=== PATIENT | female | born 1975 | race Caucasian/White ===

== ENCOUNTER 2019-11-21 07:22 | Outpatient (CLI) | payer OTHER, SELFPAY ==
[2019-11-21 07:58] LABS: Add Urine Microscopic? YES; Appearance Urine Cloudy (Clear); Bacteria Urine Trace /hpf; Bilirubin Urine Negative (Negative); Blood Urine 1+ (Negative); Color Urine Yellow (Yellow); Glucose Urine UA Negative (Negative); Ketones Urine Negative (Negative); Leukocyte Esterase Ur 3+ LEU/UL (NEGATIVE); Nitrate Urine Positive (Negative); Protein Urine 1+ mg/dL (Negative); RBC Urine 21-50 /hpf (0-2); Specific Grav Ur 1.017 (1.001-1.035); Squamous Epithelial Cell Urine Many /hpf (Few); Urobilinogen Urine Negative mg/dL (<2.0); WBC Urine >75 /hpf (0-3)
== END 2019-11-21 07:23 | disposition home or self-care (01) ==
PROVIDERS: PCP Internal Medicine; Visit Provider Obstetrics & Gynecology
DX: R39.9 Unspecified symptoms and signs involving the genitourinary system (principal)
CPT/HCPCS: 81001; 87077; 87086; 87088; 87186

== ENCOUNTER 2020-01-30 10:04 | Outpatient (CLI) | payer OTHER, SELFPAY ==
[2020-01-30 10:57] LABS: Hematocrit 49.6 % (37.0-47.0); Hemoglobin 16.2 g/dL (12.0-15.0); Mean Corpuscular HGB Conc 32.7 g/dl (32-36); Mean Corpuscular Hemoglobin 27.3 pg (26-34); Mean Corpuscular Volume 83.5 fl (80-100); Mean Platelet Volume 8.9 fl (7.4-10.4); Platelet Count Result 376 k/mm3 (150-375); Red Blood Count 5.94 M/mm3 (4.2-5.4); Red Cell Distribution Width 14.6 % (11.5-14.5)
[2020-01-30 11:28] LABS: Alanine Aminotransferase 22 U/L (4-35); Albumin Level 4.8 g/dL (3.5-5.1); Alkaline Phosphatase 85 U/L (38-126); Anion Gap 17.7 mmol/L (7-16); Aspartate Amino Transferase 33 U/L (14-36); Bilirubin,Total 0.4 mg/dL (0.2-1.3); Blood Urea Nitrogen 14 mg/dL (7-17); Calcium 10.2 mg/dL (8.4-10.2); Carbon Dioxide 17 mmol/L (22-30); Chloride 106 mmol/L (98-107); Estimated Glomerular Filt Rate > 60; Glucose 109 mg/dL (65-105); Potassium 4.7 mmol/L (3.4-5.0); Sodium 136 mmol/L (137-145)
[2020-01-30 12:56] LABS: Free T4 Free Thyroxine 0.92 ng/mL (0.78-2.19); Vitamin D 25 Hydroxy 47.6 ng/mL
== END 2020-01-30 10:05 | disposition home or self-care (01) ==
LOC: ANHLAB 10:06
PROVIDERS: PCP Internal Medicine; Visit Provider Obstetrics & Gynecology
DX: R42 Dizziness and giddiness (principal)
CPT/HCPCS: 36415; 80053; 82306; 84439; 84443; 85027

== ENCOUNTER 2020-09-14 07:39 | Outpatient (CLI) | payer OTHER, SELFPAY ==
[2020-09-14 08:32] LABS: Anion Gap 11 mmol/L (8-16); Blood Urea Nitrogen 14 mg/dL (7-17); Calcium 9.6 mg/dL (8.4-10.2); Carbon Dioxide 22 mmol/L (22-30); Chloride 104 mmol/L (98-107); Estimated Glomerular Filt Rate > 60; Glucose 86 mg/dL (65-105); Potassium 3.9 mmol/L (3.4-5.0); Sodium 137 mmol/L (137-145)
[2020-09-14 09:13] LABS: Vitamin D 25 Hydroxy 55.2 ng/mL
[2020-09-17 05:18] LABS: FSH 12.1 mIU/mL (***)
[2020-09-21 14:36] LABS: Estrogen 391.7 pg/mL
== END 2020-09-14 07:40 | disposition home or self-care (01) ==
PROVIDERS: PCP Internal Medicine; Visit Provider Obstetrics & Gynecology
DX: G47.00 Insomnia, unspecified (principal); M62.838 Other muscle spasm; Z51.81 Encounter for therapeutic drug level monitoring; Z79.899 Other long term (current) drug therapy
CPT/HCPCS: 36415; 80048; 82306; 82607; 82672; 83001

== ENCOUNTER 2020-10-09 10:08 | Outpatient (NON) | payer OTHER, SELFPAY ==
[2020-10-09 11:18] LABS: Add Urine Microscopic? YES; Appearance Urine Clear (Clear); Bacteria Urine Trace /hpf; Bilirubin Urine Negative (Negative); Blood Urine Negative (Negative); Color Urine Colorless (Yellow); Glucose Urine UA Negative (Negative); Ketones Urine Trace mg/dL (Negative); Leukocyte Esterase Ur 1+ LEU/UL (NEGATIVE); Nitrate Urine Negative (Negative); Protein Urine Negative (Negative); RBC Urine 0-2 /hpf (0-2); Squamous Epithelial Cell Urine Rare /hpf (Few); Urobilinogen Urine Negative mg/dL (<2.0)
[2020-10-09 11:23] LABS: Specific Grav Ur 1.002 (1.001-1.035)
== END 2020-10-09 10:09 ==
PROVIDERS: PCP Internal Medicine; Visit Provider Obstetrics & Gynecology
DX: R39.9 Unspecified symptoms and signs involving the genitourinary system (principal)
CPT/HCPCS: 81001; 87086; 87088

== ENCOUNTER 2020-10-13 13:56 | Outpatient (NON) | payer OTHER, SELFPAY | END 2020-10-13 13:57 | LOC: ANHLAB 13:58 | PROVIDERS: PCP Internal Medicine; Visit Provider Obstetrics & Gynecology | DX: R39.9 Unspecified symptoms and signs involving the genitourinary system (principal) | CPT/HCPCS: 87086 ==

== ENCOUNTER 2020-11-12 12:17 | Outpatient (CLI) | payer OTHER, SELFPAY ==
--- NOTE | ~2020-11-12 | MMUS_ITS ---
EXAMINATION: MM diagnostic hans BI w will, US breast LT limited HISTORY: Double left breast lump TECHNIQUE: Additional 3-D tomosynthesis images of the breasts were performed and synthetic 2-D images were generated. CAD analysis was submitted and interpreted. High resolution targeted left breast ult rasound was performed. COMPARISON: 10/30/2017 BREAST PARENCHYMAL COMPOSITION: The breasts are extremely dense, which lowers the sensitivity of mamm ography. FINDINGS: MAMMOGRAPHIC FINDINGS: There are no suspicious masses, calcifications or architectural distortion in either breast to sugges t malignancy. ULTRASOUND: Left breast ultrasound: At 2:00, 7 cm from the nipple, there is a 5 mm cyst. No suspicious masses to suggest malignancy IMPRESSION: 1. No evidence for malignancy in either breast. 2. Routine yearly screening mammogram and regular clinical breast examination are recommended. BI-RADS Category 2: Benign finding(s). Reviewed, dictated and finalized at location A. IMPRESSION: 1. No evidence for malignancy in either breast. 2. Routine yearly screening mammogram and regular clinical breast examination a re recommended. BI-RADS Category 2: Benign finding(s).
== END 2020-11-12 12:18 | disposition home or self-care (01) ==
LOC: ANHIMG 12:21
PROVIDERS: PCP Internal Medicine; Visit Provider Obstetrics & Gynecology
DX: N63.20 Unspecified lump in the left breast, unspecified quadrant (principal); N60.02 Solitary cyst of left breast
CPT/HCPCS: 76642; 77062; 77066; G0279

== ENCOUNTER 2020-12-24 10:30 | Outpatient (NON) | payer OTHER, SELFPAY | END 2020-12-24 10:31 | disposition home or self-care (01) | LOC: ANHLAB 10:33 | PROVIDERS: PCP Internal Medicine; Visit Provider Obstetrics & Gynecology | DX: R39.9 Unspecified symptoms and signs involving the genitourinary system (principal) | CPT/HCPCS: 87086; 87088 ==

== ENCOUNTER 2021-02-05 07:06 | Outpatient (CLI) | payer OTHER, SELFPAY ==
--- NOTE | ~2021-02-05 | XR_ITS ---
XR shoulder RT min 2V 02/05/2021 07:43 INDICATION: Right shoulder pain PROCEDURE: 4 views right shoulder COMPARISON: No prior studies for comparison. FINDINGS: Fracture, dislocation or subluxation is not identified. The soft tissues appear within norm al limits. No foreign bodies are identified. IMPRESSION: 1: NO ACUTE BONE OR JOINT ABNORMALITY IDENTIFIED. Reviewed, dictated and finalized at location A.
[2021-02-05 07:39] LABS: Basophils Absolute Auto 0.1 K/mm3 (0.0-0.1); Basophils Percent Auto 0.8 % (0.2-1.2); Eosinophils Absolute Auto 0.2 K/mm3 (0-0.3); Eosinophils Percent Auto 1.4 % (0-4.4); Hemoglobin 14.3 g/dL (12.0-15.0); Immature Granulocyte Absolute 0.07 K/mm3 (0.00-0.031); Immature Granulocyte Percent A 0.7 % (0-0.5); Lymphocytes Absolute Auto 3.13 K/mm3 (0.9-3.2); Lymphocytes Percent Auto 29.4 % (18.3-44.2); Mean Corpuscular HGB Conc 31.8 g/dl (32-36); Mean Corpuscular Hemoglobin 28.1 pg (26-34); Mean Corpuscular Volume 88.6 fl (80-100); Mean Platelet Volume 8.5 fl (7.4-10.4); Monocytes Absolute Auto 0.8 K/mm3 (0.1-0.6); Monocytes Percent Auto 7.5 % (2.6-8.5); Neutrophils Absolute Auto 6.4 K/mm3 (1.3-6.7); Neutrophils Percent Auto 60.2 % (45.5-73.1); Platelet Count Result 308 k/mm3 (150-375); Red Blood Count 5.08 M/mm3 (4.2-5.4); Red Cell Distribution Width 13.3 % (11.5-14.5); White Blood Count 10.7 K/mm3 (4.5-10.0)
[2021-02-05 07:46] LABS: Alanine Aminotransferase 12 U/L (4-35); Albumin Level 4.4 g/dL (3.5-5.1); Alkaline Phosphatase 69 U/L (38-126); Anion Gap 14 mmol/L (8-16); Aspartate Amino Transferase 16 U/L (14-36); Bilirubin,Total 0.3 mg/dL (0.2-1.3); Blood Urea Nitrogen 10 mg/dL (7-17); Calcium 9.8 mg/dL (8.4-10.2); Carbon Dioxide 16 mmol/L (22-30); Chloride 110 mmol/L (98-107); Estimated Glomerular Filt Rate > 60; Glucose 103 mg/dL (65-110); Potassium 4.3 mmol/L (3.4-5.0); Sodium 140 mmol/L (137-145)
[2021-02-05 07:49] LABS: Rheumatoid Factor < 8.6 IU/ML (<12)
[2021-02-05 08:37] LABS: Vitamin D 25 Hydroxy 41.4 ng/mL
== END 2021-02-05 07:07 | disposition home or self-care (01) ==
PROVIDERS: PCP Internal Medicine; Visit Provider Obstetrics & Gynecology
DX: M25.519 Pain in unspecified shoulder (principal); M79.2 Neuralgia and neuritis, unspecified; Z01.419 Encounter for gynecological examination (general) (routine) without abnormal findings
CPT/HCPCS: 36415; 73030; 80053; 82306; 84443; 85025; 86038; 86430

== ENCOUNTER 2021-03-10 12:22 | Outpatient (CLI) | payer OTHER, SELFPAY ==
[2021-03-10 13:25] LABS: Estimated Glomerular Filt Rate > 60
== END 2021-03-10 12:23 | disposition home or self-care (01) ==
PROVIDERS: PCP Internal Medicine; Visit Provider Obstetrics & Gynecology
DX: R10.2 Pelvic and perineal pain (principal)
CPT/HCPCS: 99199

== ENCOUNTER 2021-03-19 13:03 | Outpatient (CLI) | payer OTHER, SELFPAY ==
--- NOTE | ~2021-03-19 | MR_ITS ---
EXAMINATION: MR pelvis wo/w con INDICATION: Pelvic pain and swelling, concern for pelvic congestion syndrome TECHNIQUE: Coronal SSFSE ARC, Coronal, Axial, and Sagittal T2 FRFSE small haaif-dn-wons, Coronal 2D F IESTA FatSat, Axial SSFSE BH ARC, Axial 3D DualEcho BH, Axial STIR, pre and dynamic postcontrast Axi al LAVA ARC COMPARISON: CT, 04/19/2016 CONTRAST: Multihance, 18 cc FINDINGS: There are no dilated loops of bowel. No abnormal enhancement is present after contrast admi nistration. There are no discrete MRI features to suggest pelvic venous congestion syndrome. Small fo llicles are noted in the ovaries. There are no pathologically enlarged pelvic lymph nodes. The append ix is normal. IMPRESSION: 1. No MRI correlate for the patient's symptoms. No MRI findings of pelvic venous congestion syndrome. Reviewed, dictated and finalized at location B. IMPRESSION: 1. No MRI correlate for the patient's symptoms. No MRI findings of pelvic venou s congestion syndrome.
== END 2021-03-19 13:04 | disposition home or self-care (01) ==
PROVIDERS: PCP Internal Medicine; Visit Provider Obstetrics & Gynecology
DX: N94.89 Other specified conditions associated with female genital organs and menstrual cycle (principal)
CPT/HCPCS: 72197; A9577

== ENCOUNTER 2021-03-19 13:12 | Outpatient (CLI) | payer OTHER, SELFPAY ==
--- NOTE | ~2021-03-19 | MR_ITS ---
EXAMINATION: MR shoulder RT wo con DATE: 03/19/2021 14:58 INDICATION: Impingement syndrome of right shoulder. Right shoulder pain. TECHNIQUE: Magnetic resonance imaging (MRI) of the right shoulder was performed without intravenous c ontrast. Sequences included axial PD-weighted FS FSE, coronal oblique PD-weighted FS FSE and T2-weigh melvin FS FSE, and sagittal oblique T2-weighted FS FSE and T1-weighted FSE. COMPARISON: Right shoulder radiographs 02/05/2021 FINDINGS: Coracoacromial arch: The acromion undersurface is flat in morphology (type I). Acromioclavicular joint is normal. There is mild subacromial/subdeltoid bursitis. Rotator cuff: There is severe tendinopathy of supraspinatus tendon. Infraspinatus, teres minor, and subscapularis t endons are normal. There is no asymmetric fatty atrophy of the rotator cuff muscle bellies. Biceps tendon and glenoid labrum: Biceps tendon is in bicipital groove. Intra-articular biceps tendon is normal. The glenoid labrum is normal. Fluid: There is no glenohumeral joint effusion. Bones/cartilage: Glenoid cartilage is normal. Humeral head cartilage is normal. IMPRESSION: 1. Severe supraspinatus tendinopathy. No tear. 2. Mild subacromial/subdeltoid bursitis. Reviewed, dictated and finalized at location A.
== END 2021-03-19 13:13 | disposition home or self-care (01) ==
LOC: ANHIMG 13:13
PROVIDERS: PCP Internal Medicine; Visit Provider Orthopaedic Surgery
DX: M75.41 Impingement syndrome of right shoulder (principal); M77.8 Other enthesopathies, not elsewhere classified; M75.51 Bursitis of right shoulder
CPT/HCPCS: 73221

== ENCOUNTER 2021-04-28 07:37 | Outpatient (CLI) | payer OTHER, SELFPAY ==
--- NOTE | ~2021-04-28 | MR_ITS ---
EXAMINATION: MR cervical spine wo con DATE: 04/28/2021 08:38 INDICATION: Cervical radiculopathy. TECHNIQUE: Magnetic resonance imaging (MRI) of the cervical spine was performed without intravenous c ontrast. Sequences included sagittal T2-weighted FSE, sagittal STIR FSE, sagittal T1-weighted FSE, ax ial MERGE, and axial T2-weighted FSE. COMPARISON: None FINDINGS: Bone alignment is normal. Vertebral body heights and intervertebral disc heights are normal . The spinal cord signal intensity is normal. There are nodules in the thyroid measuring up to 7 mm, likely not clinically significant. The following disc levels are specifically discussed: C2-C3: The disc does not extend beyond the endplate margin. There is no uncovertebral joint osteoarth ritis. There is no facet joint osteoarthritis. There is no neural foraminal stenosis. There is no manav tral canal stenosis. C3-C4: The disc does not extend beyond the endplate margin. There is no uncovertebral joint osteoarth ritis. There is moderate bilateral facet joint osteoarthritis. There is no neural foraminal stenosis. There is no central canal stenosis. C4-C5: The disc does not extend beyond the endplate margin. There is mild bilateral uncovertebral mamadou nt osteoarthritis. There is severe bilateral facet joint osteoarthritis. There is mild bilateral neur al foraminal stenosis. There is no central canal stenosis. C5-C6: The disc does not extend beyond the endplate margin. There is mild left uncovertebral joint os teoarthritis. There is mild left facet joint osteoarthritis. There is no neural foraminal stenosis. T here is no central canal stenosis. C6-C7: The disc does not extend beyond the endplate margin. There is no uncovertebral joint osteoarth ritis. There is mild left facet joint osteoarthritis. There is no neural foraminal stenosis. There is no central canal stenosis. C7-T1: The disc does not extend beyond the endplate margin. There is no uncovertebral joint osteoarth ritis. There is mild bilateral facet joint osteoarthritis. There is no neural foraminal stenosis. The re is no central canal stenosis. IMPRESSION: 1. Mild cervical spondylosis. Reviewed, dictated and finalized at location A.
== END 2021-04-28 07:38 | disposition home or self-care (01) ==
LOC: ANHIMG 07:42
PROVIDERS: PCP Internal Medicine; Visit Provider Orthopaedic Surgery
DX: M47.22 Other spondylosis with radiculopathy, cervical region (principal)
CPT/HCPCS: 72141

== ENCOUNTER 2021-05-06 16:00 | Outpatient (RCR) | payer OTHER, SELFPAY ==
--- NOTE | 2021-02-19 08:53 | PTOPEVAL ---
Thank you for referring Theodore Sweet to [facility].? The patient is scheduled to be seen for therapy? 2x/week for 4-6 weeks. Please review, sign, date and return this plan of care ANA. I agree with and certify that the following plan of care is medically necessary. Referring Physician Date Attending Provider: Enrico King MD *PT Outpatient Evaluation Start: 02/15/21 11:39 Freq: Status: Active Protocol: Document 02/15/21 11:46 [facility] (Rec: 02/15/21 12:08 [facility] [email or web address]) Therapy Assessment Status Assessment Status Assessment Status Evaluation Outpatient Past Medical History Neurological History Hx Other Neurological Disorders Yes: Abdominal migraines/ cyclical vomiting hx Gastrointestinal History Hx Other Gastrointestinal Disorders Yes: Constipation Genitourinary History Hx Bladder Surgery Yes: Sling Musculoskeletal History Hx Other Musculoskeletal Disorders Yes: Pelvic/buttock; R shoulder pain; neck/TMJ Reproductive History Hx Tubal Ligation Yes: After 3 vaginal delivers Pain History Has Past Pain Affected Your Daily Life Yes: Limiting relationship; increas. stress Effective Methods of Pain Control Already on Gabapentin and Amitriptylene for abdom. migraines Ineffective Methods of Pain Control Ultram did not help Evaluation Information Problem Diagnosis High tone pelvic floor dysfunction Onset 12/2019 Cause No known cause Additional Evaluation Detail No known cause but does recall that the perineum did not feel like it used to prior to the hypersensitivity starting . Subjective Information Pt has tried numerous cushions Query Text:As Reported By Patient/ to try to get comfortable. Family She sits onto R hip to take pressure off. She feels like she started falling apart when she turned 45 yo as this has flared, her shoulder is exquisitively tender and painful this date, her neck is stiff and tight and her speech annunciation is even limited due to pain. She states that pain is now a 2/10 but that it gets to 10/10. She has a son that is in the [employer] in [place]; she had
--- NOTE | 2021-03-08 10:30 | PCPTNOTE ---
Pt's therapy is being put on hold until her MRI is completed. She is experiencing edema in the labia, pubis, L thigh with enlarged lymph nodes in the L groin. She came to therapy last with 10/10 pain in the L shoulder with tenderness to light palpation in the R axilla in non-muscular tissue.
--- NOTE | 2021-03-31 11:14 | PCPTNOTE ---
PT had been placed on hold, awaiting MRI findings related to edema and severe pain that she was experiencing. Pt was in contact and said she is ready to resume therapy. Pt is scheduled for tomorrow afternoon.
--- NOTE | 2021-04-08 13:23 | PCPTNOTE ---
Pt canceled appointments this week due to not feeling well. Will contact me to schedule for next week if she is feeling better.
--- NOTE | 2021-04-26 14:54 | PTOPEVAL ---
Thank you for referring Theodore Sweet to [facility].? The patient is scheduled to be seen for therapy? ____x/week for ___ weeks. Please review, sign, date and return this plan of care ANA. I agree with and certify that the following plan of care is medically necessary. 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 Pain Behaviors Guarding Right Shoulder(s) Reported Pain Level 9 Pain Description Sharp,Stabbing,Tender on Palpation,Tightness,With Movement Pain Radiation Right Arm Pain Frequency Continuous Pain Aggravating Factors ADL's,Changing Position Other Pain Aggravating Factors Can't use the mouse with her right hand, difficulty dressing/undressing; Pain Behaviors Anxious,Grimacing,Guarding Additional Pain Comments R hand is purple in color today Bilateral Perineum Reported Pain Level 4 Pain Score Pain Score 4,9,4: Self Report Cervical and Lumbar ROM Cervical ROM Cervical Flexion (0-60) 45 Query Text:Active in Degrees Cervical Extension (0-70) 50 Query Text:Active in Degrees Cervical Lateral Flexion Right (0-50) 40 Query Text:Active in Degrees Cervical Lateral Flexion Left (0-50) 40 Query Text:Active in Degrees Cervical Rotation Right (0-90) 60 Query Text:Active in Degrees Cervical Rotation Left (0-90) 60 Query Text:Active in Degrees Cervical ROM
--- NOTE | 2021-05-05 15:16 | PCPTNOTE ---
Patient called & cancelled scheduled appointment this date due to increased pain and appointment with MD.
--- NOTE | 2021-05-14 11:14 | PCPTNOTE ---
Patient called and spoke with office staff stating she needed to cancel her appointment this date, however did not give a reason.
--- NOTE | 2021-05-20 11:13 | PCPTNOTE ---
This treatment is being continued on visit number [id number]. Please see documentation on both accounts to view progress. Completed interventions, outcomes, and problems have been marked as Inactive to facilitate the copying of the Care plan routine for recurring accounts.
== END 2021-05-16 23:59 | disposition home or self-care (01) ==
LOC: ANHPT 16:00
PROVIDERS: PCP Internal Medicine; Visit Provider Urology
DX: N81.89 Other female genital prolapse (principal)
CPT/HCPCS: 97014; 97035; 97110; 97140; 97161; 97162; G0283

== ENCOUNTER 2021-06-01 16:00 | Outpatient (RCR) | payer OTHER, SELFPAY ==
--- NOTE | 2021-05-20 11:12 | PCPTNOTE ---
This treatment is being continued from visit number [id number]. Please see documentation on both accounts to view progress. Completed interventions, outcomes, and problems have been marked as Inactive to facilitate the copying of the Care plan routine for recurring accounts.
--- NOTE | 2021-05-28 08:42 | PCPTNOTE ---
Patient called & cancelled scheduled appointment this date due to having to take care of her sick mother.
--- NOTE | 2021-06-10 15:32 | PCPTNOTE ---
Patient called & cancelled scheduled appointment this date due to not being able to come in.
== END 2021-08-16 07:39 | disposition home or self-care (01) ==
LOC: ANHPT 16:00
PROVIDERS: PCP Internal Medicine; Visit Provider Urology
DX: N81.89 Other female genital prolapse (principal)
CPT/HCPCS: 97035; 97110; 97140

== ENCOUNTER 2021-06-17 06:50 | Observation (INO) | payer OTHER, SELFPAY ==
[2021-06-17] VITALS (28 sets, daily range): BP systolic 81–143; BP diastolic 48–91; PULSE 68–120; RESP 12–21; TEMP 36.1–36.8; O2SAT 96–100; BMI 28.1
--- NOTE | ~2021-06-17 | CT_ITS ---
EXAMINATION: CTA chest PE abdomen pel DATE: 06/17/2021 08:37 INDICATION: Syncope. TECHNIQUE: Computed tomography angiography (CTA) of the chest was performed with 100 mL Omnipaque-350 intravenous contrast timed to evaluate the pulmonary arteries. Coronal maximum intensity projection 3D-reconstructions were created by the technologist. Computed tomography (CT) of the abdomen and pelv is was performed with intravenous contrast. Automated exposure control and iterative reconstruction t echnique were employed. The dose-length product was 1400.67 mGy-cm. COMPARISON: CT abdomen and pelvis 04/19/2016 FINDINGS: CTA chest: There is mild dependent atelectasis bilaterally. No pleural effusion. The heart size is no rmal. No pericardial effusion. There is no pulmonary embolus. There is mild thoracic spondylosis. CT abdomen and pelvis: There are changes of cholecystectomy. Pneumobilia is noted, likely secondary t o sphincterotomy. The liver demonstrates focal steatosis adjacent to the falciform ligament. The sple en, pancreas, adrenal glands, and kidneys are normal. There is a moderate volume of stool in the colo n. There areas of mild distention of the colon. There are no pathologically enlarged lymph nodes. The re is physiologic fluid in the pelvis. There is mild lumbar spondylosis. IMPRESSION: 1. No pulmonary embolus. 2. Mild colonic distention, likely adynamic ileus. Reviewed, dictated and finalized at location A. S DESIGNER
--- NOTE | 2021-06-17 07:08 | ECG_ITS ---
Measurements Intervals [place] Rate: 106 P: 23 VA: 114 QRS: 54 QRSD: 90 T: 5 QT: 329 QTc: 439 Interpretive Statements SINUS TACHYCARDIA WITH SHORT VA INTERVAL BORDERLINE ST-T WAVE ABNORMALITY- ANTEROLAT/INF LEADS ABNORMAL ECG Electronically Signed On 06-17-2021 8:23:13 [employer]UIT CHECK[employer] by Mark Mooney D.O.
[2021-06-17 07:46] LABS: Basophils Absolute Auto 0.1 K/mm3 (0.0-0.1); Basophils Percent Auto 0.5 % (0.2-1.2); Eosinophils Absolute Auto 0.1 K/mm3 (0-0.3); Eosinophils Percent Auto 0.5 % (0-4.4); Hematocrit 50.8 % (37.0-47.0); Hemoglobin 16.6 g/dL (12.0-15.0); Immature Granulocyte Absolute 0.05 K/mm3 (0.00-0.031); Immature Granulocyte Percent A 0.4 % (0-0.5); Lymphocytes Absolute Auto 4.76 K/mm3 (0.9-3.2); Lymphocytes Percent Auto 39.9 % (18.3-44.2); Mean Corpuscular HGB Conc 32.7 g/dl (32-36); Mean Corpuscular Hemoglobin 29.1 pg (26-34); Mean Corpuscular Volume 89.1 fl (80-100); Mean Platelet Volume 8.3 fl (7.4-10.4); Monocytes Absolute Auto 0.5 K/mm3 (0.1-0.6); Monocytes Percent Auto 4.5 % (2.6-8.5); Neutrophils Absolute Auto 6.5 K/mm3 (1.3-6.7); Neutrophils Percent Auto 54.2 % (45.5-73.1); Platelet Count Result 413 k/mm3 (150-375); Red Cell Distribution Width 14.7 % (11.5-14.5); White Blood Count 11.9 K/mm3 (4.5-10.0)
--- NOTE | 2021-06-17 07:46 | ED.DIZZY ---
HPI - Dizziness General Chief Complaint: Syncope Stated Complaint: near syncope Time Seen by Provider: 06/17/21 07:07 Source: patient and old records reviewed Mode of arrival: wheelchair Limitations: clinical condition History of Present Illness HPI Narrative: 45-year-old female Here because of lightheadedness/presyncope When examined she was pretty lethargic so history from her is limited and augmented by review of the EMR She has a history of some orthopedic issues and pancreaticobiliary stents Apparently she arrived at work today complaining of abdominal pain and lightheadedness, and her blood pressure was checked and found to be low, and she was brought to the ED Here she had a normal supine blood pressure but syncopized while orthostatics will being done That was accompanied by bradycardia, not tachycardia She says she has not had any bloody stools, has more tended to be constipated, no vomiting, no chest pain, no GRIJALVA, no focal weakness No NSAIDs on her med list MD elicited complaint: dizziness and lightheadedness Related Data Home Medications Medication Instructions Recorded Confirmed sumatriptan succinate 100 mg tablet See Rx Instructions PO .COMPLEX 04/19/21 06/14/21 PRN tablet Allergies Allergy/AdvReac Type Severity Reaction Status Date / Time levetiracetam Allergy Unknown Unknown Verified 06/14/21 08:11 pseudoephedrine Allergy Unknown Unknown Verified 06/14/21 08:11 triprolidine Allergy Unknown Unknown Verified 06/14/21 08:11 zonisamide Allergy Unknown Swelling Verified 06/14/21 08:11 Review of Systems Review of Systems: ROS unobtainable: Yes unobtainable due to medical condition and unobtainable due to mental status Constitutional: Constitutional: Denies fever(s) Cardiovascular: Cardiovascular: Denies chest pain Gastrointestinal: Gastrointestinal: Reports abdominal pain Neurologic: Reports syncope [facility] Past Medical History Medical History Abdominal migraine sicklick vomitting Vaginal delivery x 3 Surgical History Surgical History History of bilateral tubal ligation History of cholecystectomy History of endometrial ablation History of pancreatic surgery sphincterotomy x3 History of tonsillectomy Family History Family History Mother Alcoholism Diabetes mellitus Hypertension Cerebrovascular accident Arthritis Father Malignant neoplasm of prostate Diabetes mellitus Hypertension Grandparent Heart disease Sibling History of hip replacement Social History Social History Second hand tobacco smoke exposure: No Alcohol intake: current Substance use: never Gender identity (if verbalized by the patient): Female Exam Const: General: confusion HENMT: Head: normal to inspection, no contusions, no hematomas and no lacerations Mouth: Yes moist mucous membranes Eyes: Pupils: Equal, round and reactive pupils present (3mm) Neck: Neck: no lymphadenopathy Resp: Effort & Inspection: normal respiratory effort Auscultation: clear to auscultation bilaterally Cardio: Rate: regular rate Rhythm: regular rhythm Heart sounds: no murmurs GI: Inspection: non-distended GI Palp: Yes Tenderness to palpation present (GI) (Mild, epigastric), No Guarding due to palpation present (GI) and No Rebound tenderness present Skin: General skin exam: pallor Neuro: General: moves all extremities and no focal motor deficits Extrem: General: no pedal edema Course Course Emergency Course: Well getting orthostatics done she had a significant drop and also a relative paradoxical bradycardia into the 60s and was syncopal/presyncopal Other than mildly low K, rest of her evaluation was fairly unrewarding Discussed with hospitalists obie obs Vital Signs Vital signs: Vi
[2021-06-17 07:55] LABS: Alanine Aminotransferase 34 U/L (4-35); Albumin Level 5.1 g/dL (3.5-5.1); Alkaline Phosphatase 70 U/L (38-126); Anion Gap 14 mmol/L (8-16); Aspartate Amino Transferase 34 U/L (14-36); Bilirubin,Total 0.6 mg/dL (0.2-1.3); Blood Urea Nitrogen 13 mg/dL (7-17); Calcium 10.2 mg/dL (8.4-10.2); Carbon Dioxide 20 mmol/L (22-30); Chloride 103 mmol/L (98-107); Estimated Glomerular Filt Rate 60; Glucose 92 mg/dL (65-110); Magnesium 2.2 mg/dL (1.6-2.3); Potassium 3.1 mmol/L (3.4-5.0); Sodium 137 mmol/L (137-145)
[2021-06-17] MEDS: LACTATED RINGERS 1,000 ML 999 ML IV CONT (07:55)
[2021-06-17 07:57] LABS: D Dimer 2.64 ug/mL (<0.48)
[2021-06-17 08:07] LABS: Troponin I < 0.012 ng/mL (0.000-0.034)
[2021-06-17 08:42] LABS: Add Urine Microscopic? YES; Appearance Urine Cloudy (Clear); Bacteria Urine Trace /hpf; Bilirubin Urine Negative (Negative); Blood Urine Negative (Negative); Color Urine Yellow (Yellow); Glucose Urine UA Negative (Negative); Ketones Urine Negative (Negative); Leukocyte Esterase Ur Negative LEU/UL (Negative); Mucus Urine Rare /lpf; Nitrate Urine Negative (Negative); Protein Urine Negative (Negative); Specific Grav Ur 1.019 (1.001-1.035); Squamous Epithelial Cell Urine Occasional /hpf (Few)
[2021-06-17 08:43] LABS: Amphetamine Screen Urine Negative (Negative); Barbiturate Screen Urine Negative (Negative); Benzodiazepines Screen Urine Negative (Negative); Cannabinoid Screen Urine Positive (Negative); Cocaine Screen Urine Negative (Negative); Methadone Screen Urine Negative (Negative); Opiate Screen Urine Negative (Negative); Phencyclidine Screen Urine Negative (Negative)
[2021-06-17 09:06] LABS: Lipase 138 U/L (23-300)
[2021-06-17 09:08] LABS: Acetaminophen < 10 ug/mL (10-30); Iron 114 ug/dL (37-170); Lactate Dehydrogenase 325 U/L (313-618); Salicylate < 1.0 mg/dL (2-20)
[2021-06-17 09:17] LABS: Percent Iron Saturation 35 % (20-50)
--- NOTE | 2021-06-17 09:25 | ECG_ITS ---
Measurements Intervals [place] Rate: 98 P: 45 MN: 135 QRS: 44 QRSD: 90 T: 7 QT: 348 QTc: 445 Interpretive Statements SINUS RHYTHM BORDERLINE ST-T WAVE ABNORMALITY- ANTEROLAT/INF LEADS BORDERLINE ECG Electronically Signed On 06-17-2021 16:35:54 ED[employer] M[employer]DER by Mark Mooney D.O.
[2021-06-17] MEDS: POTASSIUM CHLORIDE 20 MEQ PACKET (FOR LIQUID) 60 MEQ PO (10:00)
[2021-06-17] MEDS: LACTATED RINGERS 1,000 ML 150 ML IV CONT ×2 (10:00→17:40)
--- NOTE | 2021-06-17 11:00 | PC.NURSE ---
Assumed care of pt. at this time. Report from Roseanne, RN
[2021-06-17 11:10] LABS: EDCOVIDSCREEN Negative (Negative)
[2021-06-17 11:23] LABS: Troponin I < 0.012 ng/mL (0.000-0.034)
[2021-06-17] MEDS: ONDANSETRON INJ 4 MG/2 ML VIAL IV PUSH ×2 (11:31→17:49)
--- NOTE | 2021-06-17 12:37 | PC.NURSE ---
ordered lunch tray
--- NOTE | 2021-06-17 13:25 | PM.IMHP ---
H&P: HPI History of Present Illness Date/Time: 06/17/21 13:25 Chief Complaint: Lightheadedness. Narrative: This is a 45-year-old female with history of abdominal migraines, pancreatitis, irritable bowel syndrome, and gastroesophageal reflux disease who presented to the emergency department earlier today from her place of employment for evaluation of lightheadedness. She was in her usual state of health when she awoke this morning and not long prior to arrival she developed some mild cramping in her abdomen with the need to have a bowel movement. She went to the bathroom and reports passing only a small amount of soft stool though she did notice bright red blood on the toilet tissue with wiping however this is not necessarily unusual for her given her history of hemorrhoids. While walking back to her she began to feel extremely lightheaded and near syncopal and her coworkers were able to get her onto an exam table where she may have briefly lost consciousness. According to documentation, her blood pressure was reportedly 60/30 and she was brought down to the ER and she was found to have orthostatic vital signs. She has since been hydrated with improvement in her blood pressures. Unfortunately she has now started to have bloody diarrhea and reports diffuse abdominal cramping and nausea, similar to those she experiences with her abdominal migraines, and she is being admitted in this setting. She denies fever, chills, sweats, and vomiting. She has not had chest pain, palpitations, or shortness of breath. No recent travel, antibiotic use, or sick contacts. Review of Systems Review of Systems: Twelve systems were reviewed with pertinent positives and negatives as per HPI. No recent cold or flu symptoms. Her appetite has been good. No anosmia or dysgeusia. She takes spironolactone for cystic acne and has for many years. She has never had issues with orthostatic hypotension. No edema. Recently she has been having issues with right shoulder pain and neck pain for which she is seeing Dr. Wood. She has had some improvement in radiculopathy after subacromial injection. Currently undergoing physical therapy. Except as documented, all other systems were reviewed and are negative. [facility] Past Medical History Medical History (Updated 06/17/21 @ 21:32 by Mitzi Perez PA-C) Abdominal migraine Irritable bowel syndrome Surgical History Surgical History (Updated 06/17/21 @ 13:42 by Mitzi Perez PA-C) History of bilateral tubal ligation History of bladder suspension procedure History of cholecystectomy History of endometrial ablation History of pancreatic surgery sphincterotomy x3 History of tonsillectomy Family History Family History Mother Alcoholism Diabetes mellitus Hypertension Cerebrovascular accident Arthritis Father Malignant neoplasm of prostate Diabetes mellitus Hypertension Grandparent Heart disease Sibling History of hip replacement Social History Social History (Updated 06/17/21 @ 21:27 by Mitzi Perez PA-C) Social History: Code status: Full code. Smoking status: Never smoker Alcohol intake: current Alcohol use details: Patient drinks a glass of wine every few months. Substance use: current Other substance usage details: CBD gummies at bedtime as needed. Last use: CBD last use 06/15 Meds Home Medications and Allergies Home Medications Medication Instructions Recorded Confirmed Type topiramate 50 mg tablet 150 mg PO DAILY #270 tablet 10/09/19 06/17/21 Rx nortriptyline 50 mg capsule 100 mg PO DAILY #180 cap 10/28/20 06/17/21 Rx spironolactone 100 mg tablet 100 mg PO DAILY #90 tablet 12/18/20 06/17/21 Rx lidocaine 5 % topical ointment 1 applic TOPICAL TID PRN #30 g 12/19/20 06/17/21 Rx nitrofurantoin macrocrystal 100 mg 100 mg PO .COMPLEX #30 cap 01/04/21 06/17/21 Rx capsule gabapentin 300 mg capsule 900 mg PO
[2021-06-17 14:24] LABS: Troponin I < 0.012 ng/mL (0.000-0.034)
--- NOTE | 2021-06-17 16:07 | PC.NURSE ---
Pt. placed in hospital bed and repositioned
--- NOTE | 2021-06-17 16:23 | PC.NURSE ---
pt. requesting pain medications for abd migraine states she would like to try sumatriptan.
--- NOTE | 2021-06-17 17:36 | PC.NURSE ---
This patient, Theodore Sweet, was admitted to 3 [facility] Surg Room 313-01 at 1735. Patient/family oriented to hospital policies and general routines including ID bracelet, bed and alarms, visiting hours, pain management, procedures, bathroom and other care routines, personal items, smoking policy, room service/diet, and visiting hours. Information on how to activate the Rapid Response Team has been discussed. Patient/Family are encouraged to report perceived risks to care and to ask questions if they do not understand what they are told or what they should do.
[2021-06-17] MEDS: ACETAMINOPHEN 325 MG TABLET 650 MG PO (18:07)
--- NOTE | 2021-06-17 18:12 | PC.NURSE ---
Called provider Mitzi Perez, reported diarrhea with dark red color, requesting stool occult. Pt is nauseous and 7/10 pain zofran and tylenol given from pain at this time. Informed provider medication is clarified with pt this shift. Awaiting call back.
--- NOTE | 2021-06-17 18:48 | PC.NURSE ---
Occult stool order received from provider Mitzi WOLFE, sample collected and sent to lab this shift, awaiting analysis.
[2021-06-17 19:23] LABS: IFOB Positive Control Positive; Immunochemical Fecal Occult Bl Positive (N)
[2021-06-17 19:33] LABS: SARS-CoV-2 RNA PCR Negative
[2021-06-17] MEDS: MORPHINE SULFATE (*CRX) 2 MG/ML INJ IV PUSH (21:17)
[2021-06-17 21:33] LABS: Hematocrit 43.3 % (37.0-47.0); Hemoglobin 14.2 g/dL (12.0-15.0)
[2021-06-17 21:43] LABS: Lactic Acid Reflex 1.4 mmol/L (0.7-2.1)
[2021-06-17] MEDS: LACTATED RINGERS 1,000 ML 85 ML IV CONT (22:11)
[2021-06-17] MEDS: SUMAtriptan SUCCINATE 25 MG TABLET 100 MG PO (22:11)
[2021-06-17 22:15] LABS: Anion Gap 13 mmol/L (8-16); Blood Urea Nitrogen 10 mg/dL (7-17); Calcium 9.6 mg/dL (8.4-10.2); Carbon Dioxide 17 mmol/L (22-30); Chloride 107 mmol/L (98-107); Estimated CRCL calculation 99 ml/min; Estimated Glomerular Filt Rate > 60; Glucose 100 mg/dL (65-110); Magnesium 1.9 mg/dL (1.6-2.3); Potassium 3.8 mmol/L (3.4-5.0); Sodium 137 mmol/L (137-145)
[2021-06-17] MEDS: HYDROcodone/acetaminophen (*CRX) 5-325 MG TABLET 1 TAB PO (22:42)
[2021-06-18] VITALS (11 sets, daily range): BP systolic 106–128; BP diastolic 62–78; PULSE 74–92; RESP 16–18; TEMP 35.9–36.4; O2SAT 96–99
[2021-06-18] MEDS: GABAPENTIN 300 MG CAPSULE 900 MG PO ×2 (00:04→21:13)
[2021-06-18] MEDS: NORTRIPTYLINE HCL 25 MG CAPSULE 100 MG PO ×2 (00:04→21:13)
[2021-06-18] MEDS: LIDOCAINE 5% PATCH 1 PATCH TOPICAL (00:51)
[2021-06-18] MEDS: MORPHINE SULFATE (*CRX) 2 MG/ML INJ IV PUSH ×4 (00:51→16:37)
[2021-06-18] MEDS: ONDANSETRON INJ 4 MG/2 ML VIAL IV PUSH ×3 (06:03→16:37)
[2021-06-18 07:48] LABS: Hemoglobin 13.1 g/dL (12.0-15.0); Mean Corpuscular HGB Conc 32.8 g/dl (32-36); Mean Corpuscular Hemoglobin 28.3 pg (26-34); Mean Corpuscular Volume 86.4 fl (80-100); Mean Platelet Volume 8.3 fl (7.4-10.4); Platelet Count Result 325 k/mm3 (150-375); Red Blood Count 4.63 M/mm3 (4.2-5.4); Red Cell Distribution Width 14.7 % (11.5-14.5); White Blood Count 14.2 K/mm3 (4.5-10.0)
[2021-06-18 07:59] LABS: Alanine Aminotransferase 26 U/L (4-35); Albumin Level 3.7 g/dL (3.5-5.1); Alkaline Phosphatase 56 U/L (38-126); Anion Gap 9 mmol/L (8-16); Aspartate Amino Transferase 26 U/L (14-36); Bilirubin,Total 0.7 mg/dL (0.2-1.3); Blood Urea Nitrogen 7 mg/dL (7-17); Calcium 8.6 mg/dL (8.4-10.2); Carbon Dioxide 20 mmol/L (22-30); Chloride 109 mmol/L (98-107); Estimated CRCL calculation 88 ml/min; Estimated Glomerular Filt Rate > 60; Glucose 106 mg/dL (65-110); Lipase 67 U/L (23-300); Magnesium 1.9 mg/dL (1.6-2.3); Potassium 3.6 mmol/L (3.4-5.0); Sodium 138 mmol/L (137-145)
[2021-06-18] MEDS: LACTATED RINGERS 1,000 ML 85 ML IV CONT ×2 (11:30→22:32)
[2021-06-18] MEDS: TOPIRAMATE 100 MG TABLET PO (11:31)
[2021-06-18] MEDS: PANTOPRAZOLE SODIUM IV 40 MG VIAL IV PUSH (11:31)
[2021-06-18] MEDS: TOPIRAMATE 25 MG TABLET 50 MG PO (11:31)
--- NOTE | 2021-06-18 11:55 | PC.NURSE ---
MD Ann office called, to clarify consult for pt regarding bloody stools and abdominal pain.
[2021-06-18 12:49] LABS: Hemoglobin 13.4 g/dL (12.0-15.0)
[2021-06-18 12:59] LABS: Lactic Acid Reflex 0.8 mmol/L (0.7-2.1)
--- NOTE | 2021-06-18 14:32 | WPDGICN ---
Assessment and Plan Assessment and plan (1) Bloody diarrhea: Code(s): R19.7 - Diarrhea, unspecified Status: Acute Assessment and Plan: wonder if she presented with ischemic colitis given acute pain after passing blood with pre-syncope but normal lactic acid, doing better. CT scan a/p reviewed no obvious colitis liquid diet, supportive care hb stable may need colonoscopy (2) Abdominal pain: Code(s): R10.9 - Unspecified abdominal pain Status: Acute Assessment and Plan: improving, pain meds as needs and hydration (3) Syncope: Code(s): R55 - Syncope and collapse Status: Acute Assessment and Plan: on arrival and resolved (4) Abdominal migraine: Code(s): G43.D0 - Abdominal migraine, not intractable Status: Inactive (5) Nausea and vomiting in adult: Code(s): R11.2 - Nausea with vomiting, unspecified Status: Acute Assessment and Plan: improved GI Consult Note Consult date/time: 06/18/21 14:32 HPI: Theodore Sweet is a 45 year old female with history of cholecystectomy mid , pancreatitis that required ERCP with stent ~ 2003, later on diagnosed with abdominal migraines after she was having cyclic episodes of n/v, abdominal pain with diarrhea. Eventually GI doctor at [facility] made diagnosis and prescribed gabapentin, nortriptyline and topamax as prophylaxis. She says that has been doing quite well for last few years. Last colonoscopy ~ 4-5 years ago. She is here after yesterday had severe left abdominal pain with cramping and loose stools then followed by rectal bleeding x2, feeling lightheaded with brief loss of consciousness and nausea with vomiting, she says that is different from previous episodes. BP in the ER was low, treated with fluids and admitted to hospital. WBC 14k, hb 13. She is feeling better but still some pain. Lactic acid, pancreatic and liver enzymes normal. No sick contact, no fever. Review of Systems Constitutional: Constitutional: Denies chills Eyes: Eyes: Denies blurry vision ENT: Reports Normal hearing present Cardiovascular: Cardiovascular: Denies chest pain Respiratory: Respiratory: Denies dyspnea Gastrointestinal: Gastrointestinal: Reports abdominal pain, Reports hematochezia, Reports nausea and Reports vomiting Genitourinary: Genitourinary: Denies hematuria Musculoskeletal: Musculoskeletal: Denies neck pain Integumentary/Breasts: Skin/Breast: Denies dry skin Neurologic: Denies headache(s) Psychiatric: Psychiatric: Denies behavioral changes [facility] Past Medical History Medical History (Updated 06/18/21 @ 14:45 by Bassam Estrella MD) Abdominal migraine Irritable bowel syndrome Nausea and vomiting in adult Surgical History Surgical History (Updated 06/17/21 @ 13:42 by Mtizi Perez PA-C) History of bilateral tubal ligation History of bladder suspension procedure History of cholecystectomy History of endometrial ablation History of pancreatic surgery sphincterotomy x3 History of tonsillectomy Family History Family History Mother Alcoholism Diabetes mellitus Hypertension Cerebrovascular accident Arthritis Father Malignant neoplasm of prostate Diabetes mellitus Hypertension Grandparent Heart disease Sibling History of hip replacement Social History Social History (Updated 06/17/21 @ 21:27 by Mitzi Perez PA-C) Social History: Code status: Full code. Smoking status: Never smoker Alcohol intake: current Alcohol use details: Patient drinks a glass of wine every few months. Substance use: current Other substance usage details: CBD gummies at bedtime as needed. Last use: CBD last use 06/15 Meds Home Medications and Allergies Home Medications Medication Instructions Recorded Confirmed Type topiramate 50 mg tablet 150 mg PO DAILY #270 tablet 10/09/19 06/17/21 Rx n
--- NOTE | 2021-06-18 15:22 | PM.IMPN ---
Progress Note: A&P Assessment and Plan (1) Syncope: Code(s): R55 - Syncope and collapse Status: Acute Assessment and Plan: Presyncopal symptoms with possible brief LOC. most likely to be vasovagal in origin, though may have been related to orthostasis as she was noted to be orthostatic in the ED. She has been rehydrated with IV fluids and is now tolerating oral intake Echo is pending Monitored on telemetry overnight, tele reviewed which showed normal sinus rhythm, no pauses or dysrhythmias. Will discontinue telemetry at this time (2) Orthostatic hypotension: Code(s): I95.1 - Orthostatic hypotension Status: Acute Assessment and Plan: Noted to be orthostatic on admission BP down to 81/66 and she was symptomatic. Continue to monitor orthostatic blood pressures She received IV fluids and is now euvolemic. David hose Fall precautions implemented (3) Bloody diarrhea: Code(s): R19.7 - Diarrhea, unspecified Status: Acute Assessment and Plan: Etiology for this is unclear, possibly gastroenteritis vs colitis. Lactic acid within normal limits. CTA of the abdomen with no source of bleeding. Hemoglobin and hematocrit is stable Appreciate Gastroenterology consultation Continue clear liquid diet and advance as tolerated Colonoscopy being considered per Gastroenterology No further episodes of blood in stool today (4) Abdominal pain: Code(s): R10.9 - Unspecified abdominal pain Status: Acute Assessment and Plan: Complains of left lower quadrant pain. CTA shows possible adynamic ileus, however she has not had any episodes of vomiting and has positive bowel sounds. Appreciate Gastroenterology consultation. Continue supportive care, analgesics and antiemetics available as needed Advanced diet as tolerated (5) Hypokalemia: Code(s): E87.6 - Hypokalemia Status: Acute Assessment and Plan: Potassium is 3.6 today Continue to monitor BMP Subjective Date/time seen: 06/18/21 15:22 Interval history: Date of service: 06/18/2021 Theodore Sweet is a 45-year-old female with a history of abdominal migraine and IBS who is seen in follow-up for syncope and bloody diarrhea. She is feeling only slightly better today. She stated that her biggest complaints abdominal pain. Last night she rated it is 8/10 and today it is about 6/10, after pain medication. She describes it as a cramping sensation without constant ache, almost like it was kicked in the stomach. This morning she had a wave of nausea but has not had any episodes of emesis. No fevers, chills, or sweats. Her last bowel movement was last night in the ER and at that time she had bloody diarrhea. She has not had any stools today and is not passing any blood. She denies any other episodes of bleeding including hematuria. She has not had any more episodes of dizziness or lightheadedness. She has been able to get up and walk around without symptoms. She reports very poor appetite. She has only had ice chips in can not get herself to try to get down anything else. Review of Systems Review of Systems: All systems reviewed & are unremarkable except as noted in HPI and below Exam Narrative: Ms. Sweet is a well-nourished, well-appearing 45-year-old male who is lying supine in bed. She appears comfortable and is in NARD. Neuro: awake, alert and oriented x4, speech clear, no focal neuro deficits noted HEENMT: normocephalic, atraumatic, EOMI, sclerae anicteric, moist oral mucosa Neck: supple, no lymphadenopathy Respiratory: clear to auscultation bilaterally, nonlabored breathing Cardio: regular rate, regular rhythm with S1-S2 Abdomen: nondistended, normoactive bowel sounds, soft, tender to palpation in LLQ, no epigastric tenderness Extremities: no edema, erythema, or tenderness to palpation, DP pulses 2+ bilaterally Skin: no rashes or lesions, warm and dry Psych:
[2021-06-18] MEDS: HYDROcodone/acetaminophen (*CRX) 5-325 MG TABLET 1 TAB PO (21:19)
--- NOTE | 2021-06-18 21:34 | ECHO_ITS ---
Patient Info Name: Theodore Sweet Age: 45 years : 1975 Gender: Female Ht: 68 in Wt: 185 lbs BSA: 2.03 m2 HR: 78 bpm BP: 128 / 78 mmHg Heart Rhythm: Sinus Rhythm Technical Quality: Good Exam Date: 06/18/2021 10:35 AM Exam Location: [facility] Room: [facility] Patient Status: Inpatient Admit Date: 06/17/2021 Staff Ordering Physician: Mitzi Perez PA-C Bender Helper: Ines Up RDCS Attending Provider: Desi Donaldson PA-C Referring Physician: Ana NOE; Exam Type: CA echo doppler color flow Study Info Indications - syncope Complete two-dimensional, color flow and Doppler transthoracic echocardiogram is performed. Summary 1. Complete two-dimensional, color flow and Doppler transthoracic echocardiogram is performed. 2. Trivial amount of mitral valve regurgitation. 3. Otherwise unremarkable echocardiogram. Left Ventricle Left ventricular chamber dimension is normal. Left ventricular systolic function is normal, estimated at 60-65%. The left ventricular diastolic function is normal. Right Ventricle Right ventricular chamber dimension is normal. Left Atria Left atrial chamber dimension is normal. Right Atria Right atrial chamber dimension is normal. Aortic Valve The aortic valve is normal. Pulmonic Valve The pulmonic valve is normal. Mitral Valve The mitral valve has normal leaflets. There is trace mitral valve regurgitation. Tricuspid Valve The tricuspid valve leaflets are normal. Pericardium/Pleural The pericardium appears normal. Aorta The aortic root size at the sinus of Valsalva is normal. Left Ventricular Outflow Tract Name Value Normal LVOT 2D LVOT Diameter 2.0 cm LVOT Doppler LVOT Peak Gradient 4 mmHg LVOT Mean Gradient 2 mmHg LVOT VTI 20 cm LVOT VTI/AV VTI Ratio 0.9 LVOT Stroke Volume 61 ml LVOT CO 13.1 l/min LVOT CI 6.5 l/min/m2 Pulmonic Valve Name Value Normal PV Doppler PV Peak Gradient 3 mmHg Mitral Valve Name Value Normal MV Doppler MV Decel [place] 387 cm/s2 MV PHT 58 ms MV Area (PHT) 3.8 cm2 4.0-5.0 MV Diastolic Function MV E Peak Velocity 77 cm/s MV A Peak Velocity 67
[2021-06-19] MEDS: ONDANSETRON INJ 4 MG/2 ML VIAL IV PUSH (02:29)
[2021-06-19 05:32] VITALS: BP 112/63; PULSE 84; RESP 18; TEMP 36.7; O2SAT 100
[2021-06-19 06:56] LABS: Hematocrit 38.5 % (37.0-47.0); Hemoglobin 12.2 g/dL (12.0-15.0); Mean Corpuscular HGB Conc 31.7 g/dl (32-36); Mean Corpuscular Hemoglobin 28.1 pg (26-34); Mean Corpuscular Volume 88.7 fl (80-100); Mean Platelet Volume 8.3 fl (7.4-10.4); Platelet Count Result 280 k/mm3 (150-375); Red Blood Count 4.34 M/mm3 (4.2-5.4); Red Cell Distribution Width 14.7 % (11.5-14.5); White Blood Count 11.9 K/mm3 (4.5-10.0)
[2021-06-19 07:15] LABS: Anion Gap 7 mmol/L (8-16); Blood Urea Nitrogen 7 mg/dL (7-17); Calcium 8.4 mg/dL (8.4-10.2); Carbon Dioxide 22 mmol/L (22-30); Chloride 108 mmol/L (98-107); Estimated CRCL calculation 78 ml/min; Estimated Glomerular Filt Rate > 60; Glucose 103 mg/dL (65-110); Potassium 3.8 mmol/L (3.4-5.0); Sodium 137 mmol/L (137-145)
[2021-06-19 08:00] VITALS: BP 87/66; PULSE 85; RESP 16; TEMP 35.8; O2SAT 97
[2021-06-19 08:20] VITALS: BP 124/76
[2021-06-19 08:21] VITALS: BP 122/73
[2021-06-19] MEDS: ASPIRIN 81 MG CHEWABLE TABLET PO (08:41)
[2021-06-19] MEDS: TOPIRAMATE 100 MG TABLET PO (08:41)
[2021-06-19] MEDS: TOPIRAMATE 25 MG TABLET 50 MG PO (08:41)
[2021-06-19] MEDS: PANTOPRAZOLE SODIUM IV 40 MG VIAL IV PUSH (08:41)
--- NOTE | 2021-06-19 10:27 | WPDGIPROGNO ---
Progress Note: A&P Assessment and Plan (1) Orthostatic hypotension: Code(s): I95.1 - Orthostatic hypotension Status: Acute Assessment and Plan: resolved and presented on admission (2) Bloody diarrhea: Code(s): R19.7 - Diarrhea, unspecified Status: Acute Assessment and Plan: denies any since admission, will advance diet and probably can go home later today will arrange colonoscopy as outpatient hb stable (3) Nausea and vomiting in adult: Code(s): R11.2 - Nausea with vomiting, unspecified Status: Acute Assessment and Plan: resolved (4) Abdominal pain: Code(s): R10.9 - Unspecified abdominal pain Status: Acute Assessment and Plan: almost gone (5) Syncope: Code(s): R55 - Syncope and collapse Status: Acute (6) Abdominal migraine: Code(s): G43.D0 - Abdominal migraine, not intractable Status: Acute Assessment and Plan: diagnosed years ago and she has been on fci treatment with prophylaxis Subjective Date/time seen: 06/19/21 10:27 Interval history: she is doing much better, no more emesis or bowel movement, tolerated liquid diet. She thinks that probably could go home later today. Review of Systems Review of Systems: All systems reviewed & are unremarkable except as noted in HPI and below Exam Const: General: comfortable and no acute distress HENMT: General nose exam: Normal nares present Eyes: Sclera: sclerae normal Neck: Neck: supple Resp: Effort & Inspection: normal respiratory effort Auscultation: clear to auscultation bilaterally Cardio: Rate: regular rate Rhythm: regular rhythm GI: Inspection: non-distended GI Palp: Yes Soft to palpation and No Guarding due to palpation present (GI) Auscultation: normal bowel sounds Skin: General skin exam: normal color Neuro: Speech: normal speech Extrem: General: normal to inspection Psych: Mental Status: mental status grossly normal Objective Data Vital Signs Vital Signs: Vital Signs - 24 hr 06/18/21 12:00 06/18/21 14:00 06/18/21 18:45 Temperature 97.4 F L Pulse Rate 80 82 Respiratory Rate 16 Blood Pressure 115/64 120/71 Pulse Oximetry 98 06/18/21 20:00 06/18/21 22:00 06/18/21 23:14 Temperature 97.6 F 97.1 F L Pulse Rate 84 91 89 Respiratory Rate 18 18 Blood Pressure 106/62 106/71 Pulse Oximetry 97 99 97 06/18/21 23:15 06/19/21 05:32 06/19/21 08:00 Temperature 98.1 F 96.5 F L Pulse Rate 88 84 85 Respiratory Rate 18 16 Blood Pressure 111/70 112/63 87/66 L Pulse Oximetry 99 100 97 06/19/21 08:20 06/19/21 08:21 Temperature Pulse Rate Respiratory Rate Blood Pressure 124/76 122/73 Pulse Oximetry Intake/Output Intake/Output: Intake & Output 06/16/21 06/17/21 06/18/21 06/19/21 23:59 23:59 23:59 23:59 Intake Total 3000 2660 750 Output Total 1900 1000 Balance 3000 760 -250 Meds/Results Medications: Active Medications Generic Name Dose Route Start Last Admin Trade Name Freq PRN Reason Stop Dose Admin Acetaminophen 650 mg 06/17/21 09:48 06/17/21 18:07 Acetaminophen 325 Mg Tablet PO 650 mg Q4H PRN Administration Mild Pain (1-3) or Fever Hydrocodone Bitart/Acetaminophen 1 tab 06/17/21 21:06 06/18/21 21:19 Hydrocodone/Acetaminophen (*Crx) 5-325 Mg Tablet PO 1 tab Q6H PRN Administration Pain Rated 4-6 Aspirin 81 mg 06/18/21 08:00 06/19/21 08:41 Aspirin 81 Mg Chewable Tablet PO 81 mg DAILY@0800 DREW Administration Dextrose 12.5 gm 06/17/21 21:33 Dextrose 50% 25 Gm/50 Ml Syringe IV PUSH PRN PRN Hypoglycemia Protocol Gabapentin 900 mg 06/17/21 22:05 06/18/21 21:13 Gabapentin 300 Mg Capsule PO 900 mg HS DREW Administration Glucagon 1 mg 06/17/21 21:33 Glucagon For Inj 1 Mg Vial IM PRN PRN Hypoglycemia Protocol Glucose 15 gm 06/17/21 21:33 Glucose Oral Gel 15 Gm Of Glucse In 37
--- NOTE | 2021-06-19 13:10 | PM.DS ---
DS: Admitting Diagnosis Discharge Date 06/19/2021 Admitting Diagnosis Abdominal pain, bloody diarrhea DS: Discharge Diagnosis Discharge Diagnosis (1) Syncope: Code(s): R55 - Syncope and collapse Status: Acute Assessment and Plan: Presyncopal symptoms with possible brief LOC. Most likely vasovagal in origin, though may have been related to orthostasis as she was noted to be orthostatic in the ED. she was rehydrated with IV fluids and was able to tolerate oral intake. Echo reviewed with normal EF and no significant valvular disease. She was monitored on telemetry overnight which showed normal sinus rhythm without pauses or dysrhythmias. Resolved with no further symptoms. (2) Orthostatic hypotension: Code(s): I95.1 - Orthostatic hypotension Status: Acute Assessment and Plan: Noted to be orthostatic on admission with BP down to 81/66 and she was symptomatic. She was rehydrated with IV fluids and blood pressures improved. Encouraged to maintain oral intake and wear David hose. Fall precautions discussed (3) Bloody diarrhea: Code(s): R19.7 - Diarrhea, unspecified Status: Acute Assessment and Plan: Etiology for this is unclear, possibly gastroenteritis vs colitis. Lactic acid within normal limits. CTA of the abdomen with no source of bleeding. Hemoglobin and hematocrit remained stable. She was seen in consultation by Gastroenterology. She was able to advance her diet and tolerate a bland diet, which she should continue. She will follow-up with GI as an outpatient to schedule colonoscopy. No further episodes of diarrhea or bloody stools. (4) Abdominal pain: Code(s): R10.9 - Unspecified abdominal pain Status: Acute Assessment and Plan: Resolved. Presented with complaints of left lower quadrant pain. CTA showed possible adynamic ileus, however she did not have any episodes of vomiting and had positive bowel sounds. As above, she was seen in consultation by Gastroenterology and will follow-up as an outpatient. Supportive care provided including analgesics antiemetics. She was able to tolerate a bland diet. (5) Hypokalemia: Code(s): E87.6 - Hypokalemia Status: Acute Assessment and Plan: Potassium slightly low on presentation, 3.1. This may have been from diarrhea. Potassium was supplemented and all subsequent potassium levels were stable. Diarrhea resolved and anticipate potassium levels to remain stable. DS: Summary Hospital Course Hospital Course: Date of admission: 06/17/2021 Date of discharge: 06/19/2021 Theodore Sweet is a 45-year-old female with a history of abdominal migraine and IBS who presented to the emergency department on 06/19/2021 with complaints of abdominal pain and earlier that afternoon, while at work she had an episode of syncope. On presentation, her vital signs were stable, although her blood pressure did decline to 81/66 on recheck, CBC with mild polycythemia which resolved, potassium 3.1, additional electrolytes stable, troponin negative, CTA was negative for PE and showed mild colonic distention. She was admitted to hospitalist service for further evaluation and management and was seen in consultation by Gastroenterology. Please see above for further details. She was rehydrated with IV fluids and her blood pressure stabilized and she was no longer orthostatic. Her abdominal pain and diarrhea resolved. She will follow-up with GI as an outpatient to schedule colonoscopy. She was feeling significantly improved and requested discharge home. Given her overall improvement, she was determined to no longer require inpatient care was felt to be stable for discharge. Consulting specialists in agreement with plans. I discussed with the patient worrisome signs and symptoms for which to return and she was educated on her medications. She was discharged in hemodynamically stable condition on 06/19/2021 Status
== END 2021-06-19 14:45 | disposition home or self-care (01) ==
LOC: ANHED 09:58 → ANH2MED 12:13 → ANH3MEDSUR 17:23
PROVIDERS: Physician Assistant; Admitting Provider Internal Medicine; Emergency Provider Emergency Medicine; PCP Internal Medicine; Visit Provider Internal Medicine
DX: I95.1 Orthostatic hypotension (principal); E87.6 Hypokalemia; D75.1 Secondary polycythemia; G43.D0 Abdominal migraine, not intractable; R10.9 Unspecified abdominal pain; R19.7 Diarrhea, unspecified; K21.9 Gastro-esophageal reflux disease without esophagitis; F12.90 Cannabis use, unspecified, uncomplicated; R11.2 Nausea with vomiting, unspecified; Z20.822 Contact with and (suspected) exposure to COVID-19
CPT/HCPCS: 36415; 71275; 74177; 80048; 80053; 80307; 81001; 82274; 82728; 83540; 83550; 83605; 83615; 83690; 83735; 84443; 84484; 85014; 85018; 85025; 85027; 85380; 86850; 86900; 86901; 87426; 93005; 93306; 96361; 96374; 96375; 96376; 99285; A9270; C9113; C9803; G0378; J2270; J2405; J7120; Q9967; U0003; U0005

== ENCOUNTER 2021-06-30 02:15 | Day surgery (SDC) | payer OTHER, SELFPAY ==
[2021-06-22 10:46] VITALS: BMI 27.7
[2021-06-30 06:45] VITALS: BP 143/99; PULSE 121; RESP 18; TEMP 36.2; O2SAT 100
[2021-06-30] MEDS: LACTATED RINGERS 1,000 ML 150 ML IV CONT (07:02)
--- NOTE | 2021-06-30 07:15 | WPDANESEPPF ---
Anes - Initial Pre Proc Eval Procedure: Operation Date: 06/30/21 07:30 Proposed Procedures p Colonoscopy - Bassam Estrella MD Date/Time: 06/30/21 07:15 Surgeon: Bassam Estrella MD Pre Op Diagnosis: Rectal Bleeding Patient Data Age: 45 Gender: F Height: 1.74 m Weight: 82.7 kg Last Vital Signs Temp 97.1 F L 06/30/21 06:45 Pulse 121 H 06/30/21 06:45 Resp 18 06/30/21 06:45 BP 143/99 H 06/30/21 06:45 Pulse Ox 100 06/30/21 06:45 Allergies Allergy/AdvReac Type Severity Reaction Status Date / Time levetiracetam Allergy Unknown Unknown Verified 06/30/21 06:39 zonisamide Allergy Unknown Swelling Verified 06/30/21 06:39 Home Medications Medication Instructions Recorded Confirmed Type topiramate 50 mg tablet 150 mg PO DAILY #270 tablet 10/09/19 06/22/21 Rx nortriptyline 50 mg capsule 100 mg PO DAILY #180 cap 10/28/20 06/22/21 Rx spironolactone 100 mg tablet 100 mg PO DAILY #90 tablet 12/18/20 06/22/21 Rx gabapentin 300 mg capsule 900 mg PO DAILY #270 cap 01/22/21 06/22/21 Rx pantoprazole 40 mg tablet,delayed 40 mg PO QAM #90 tablet 01/25/21 06/22/21 Rx release zolpidem 10 mg tablet 10 mg PO .qhs PRN #90 tablet 01/25/21 06/22/21 Rx sumatriptan succinate 100 mg tablet See Rx Instructions PO .COMPLEX 04/19/21 06/22/21 History PRN tablet lidocaine [Blue-Emu Lidocaine 1 patch TOPICAL DAILY PRN 06/17/21 06/22/21 History Patch] Patient hx anesthesia problems: none Family hx anesthesia problems: none Results Review: All pre-operative results and documents have been reviewed as part of the pre-operative evaluation. [facility] Past Medical History Medical History (Updated 06/19/21 @ 10:39 by Bassam Estrella MD) Abdominal migraine Irritable bowel syndrome Nausea and vomiting in adult Surgical History Surgical History (Updated 06/17/21 @ 13:42 by Mitzi Perez PA-C) History of bilateral tubal ligation History of bladder suspension procedure History of cholecystectomy History of endometrial ablation History of pancreatic surgery sphincterotomy x3 History of tonsillectomy Family History Family History Mother Alcoholism Diabetes mellitus Hypertension Cerebrovascular accident Arthritis Father Malignant neoplasm of prostate Diabetes mellitus Hypertension Grandparent Heart disease Sibling History of hip replacement Social History Social History (Updated 06/17/21 @ 21:27 by Mitzi Perez PA-C) Social History: Code status: Full code. Smoking status: Never smoker Alcohol intake: current Alcohol use details: rarely Substance use: current Other substance usage details: CBD gummies at bedtime as needed. Last use: CBD last use 06/15 Living arrangements: with family Spiritual care concerns: No Anes - Eval Final PreProcedure Day of Procedure 06/30/21 07:15 Patient weight: overweight Heart: regular rate and rhythm Lungs: clear to auscultation Airway: Mallampati scale class II Neurological: alert and oriented Last oral intake: >/= 8 hours ASA classification: II Emergent: no Anesthetic plan: proceed Anesthesia type and monitoring: general GIVS and standard monitoring Results Review: All pre-operative results and documents have been reviewed as part of the pre-operative evaluation. Informed Consent: The patient's anesthetic plan and its attendant risks and benefits were discussed with the patient/family/POA. Questions were solicited and answers provided to the satisfaction of the patient/family/POA.
--- NOTE | 2021-06-30 07:28 | WPDHPUPDATE1 ---
History and Physical Update Update Date/Time: 06/30/21 07:28 History and Physical has been reviewed, including an updated exam of the patient. There are NO changes in the patient's condition. Risks, benefits, and alternatives have been discussed and questions answered. Patient agrees to proceed with procedure.
[2021-06-30 07:43] VITALS: BP 129/89; PULSE 110; RESP 21; O2SAT 99
[2021-06-30 07:53] VITALS: BP 122/95; PULSE 100; RESP 23; O2SAT 99
[2021-06-30 08:03] VITALS: BP 135/95; PULSE 95; RESP 18; O2SAT 100
== END 2021-06-30 08:12 | disposition home or self-care (01) ==
PROVIDERS: PCP Internal Medicine; Visit Provider Internal Medicine Gastroenterology
PROC: 0DJD8ZZ Inspection of Lower Intestinal Tract, Via Natural or Artificial Opening Endoscopic (ICD-10-PCS; CPT 45378; principal; 2021-06-30 07:30)
DX: K62.5 Hemorrhage of anus and rectum (principal); R19.7 Diarrhea, unspecified; G43.D0 Abdominal migraine, not intractable; K64.8 Other hemorrhoids; Z90.49 Acquired absence of other specified parts of digestive tract
CPT/HCPCS: 45378; J2704; J7120

== ENCOUNTER 2021-12-21 12:59 | Outpatient (CLI) | payer OTHER, SELFPAY ==
--- NOTE | ~2021-12-21 | XR_ITS ---
XR_[id number]_CR DATE: 12/21/2021 13:19 INDICATION: Heel pain. No injury. TECHNIQUE: Standing three-view examination COMPARISON: None FINDINGS: No fracture or dislocation, periosteal reaction or bone destruction. No erosive change. IMPRESSION: No significant abnormality Reviewed, dictated and finalized at [facility]. Reviewed, dictated and finalized at [facility]. IMPRESSION: No significant abnormality
== END 2021-12-21 13:00 | disposition home or self-care (01) ==
PROVIDERS: PCP Internal Medicine; Visit Provider Obstetrics & Gynecology
DX: M79.673 Pain in unspecified foot (principal)
CPT/HCPCS: 73630

== ENCOUNTER 2022-02-14 14:29 | Outpatient (CLI) | payer OTHER, SELFPAY ==
--- NOTE | ~2022-02-14 | US_ITS ---
US thyroid INDICATION: Neck swelling and palpable mass TECHNIQUE: Real-time sonographic images of the thyroid gland were obtained. COMPARISON: No prior studies for comparison. FINDINGS: The right thyroid lobe measures 5.2 x 1.3 x 1.9 cm. The left thyroid lobe measures 5.4 x 1 .4 x 2 cm. There is normal echotexture and echogenicity throughout the thyroid gland. There are multi ple bilateral thyroid masses, largest in the right lobe measuring 8 x 6 x 7 mm. This mass is solid, h yperechoic, wider than tall, smoothly marginated without echogenic foci, (TR 3). Largest in the left lobe measures 8 x 6 x 1.1 cm and is solid, hypoechoic, wider than tall, smoothly marginated without e chogenic foci, TR 4. Normal vascular flow is present. IMPRESSION: 1. Multiple bilateral thyroid masses with diffuse thyroid enlargement, most likely benign multinodul ar goiter. Recommend follow-up ultrasound in 12 months. Reviewed, dictated and finalized at [facility]. IMPRESSION: 1. Multiple bilateral thyroid masses with diffuse thyroid enlargement, most li elisa benign multinodular goiter. Recommend follow-up ultrasound in 12 months.
[2022-02-14 16:34] LABS: Free T4 Free Thyroxine 0.75 ng/mL (0.78-2.19)
== END 2022-02-14 14:30 | disposition home or self-care (01) ==
PROVIDERS: PCP Internal Medicine; Visit Provider Obstetrics & Gynecology
DX: R22.1 Localized swelling, mass and lump, neck (principal)
CPT/HCPCS: 36415; 76536; 84439; 84443

== ENCOUNTER 2022-03-16 06:48 | Outpatient (CLI) | payer OTHER, SELFPAY ==
[2022-03-19 07:49] LABS: LH 4.7 mIU/mL (***)
[2022-03-20 06:16] LABS: FSH 7.3 mIU/mL (***)
== END 2022-03-16 06:49 | disposition home or self-care (01) ==
LOC: ANHLAB 06:50
PROVIDERS: PCP Internal Medicine; Visit Provider Obstetrics & Gynecology
DX: N64.3 Galactorrhea not associated with childbirth (principal)
CPT/HCPCS: 36415; 83001; 83002; 84146

== ENCOUNTER 2022-03-29 11:51 | Outpatient (CLI) | payer OTHER, SELFPAY ==
--- NOTE | ~2022-03-29 | MMUS_ITS ---
EXAMINATION: MM diagnostic hans BI w will, US breast BI limited HISTORY: Bilateral nipple discharge and pain of the right nipple. TECHNIQUE: Craniocaudal, mediolateral, and mediolateral oblique 3-D tomosynthesis images of the breas ts were performed and synthetic 2-D images were generated. CAD analysis was submitted and interpreted . High resolution limited bilateral breast ultrasound was performed. COMPARISON: 11/12/2020, 10/30/2017 BREAST PARENCHYMAL COMPOSITION: The breasts are heterogeneously dense, which may obscure small masses . FINDINGS: MAMMOGRAPHIC FINDINGS: There is no suspicious mass, calcification, or architectural distortion in either breast to suggest malignancy. There has been no suspicious interval change. No mammographic correlate is identified for the patient's reported nipple discharge in either breast. ULTRASOUND: There is a 4 mm cyst of the right breast near the nipple. No sonographic correlate is identified for the patient's reported nipple discharge right breast pain. IMPRESSION: 1. No specific mammographic or sonographic correlate is identified for the patient's reported bilater al nipple discharge or right breast pain. Further evaluation at this time should be based on clinical assessment. Continued follow-up physical examination is recommended. 2. Recommend routine screening mammography in one year. BI-RADS Category 2: Benign finding(s). Reviewed, dictated and finalized at location A. IMPRESSION: 1. No specific mammographic or sonographic correlate is identified for the len ent's reported bilateral nipple discharge or right breast pain. Further evaluat ion at this time should be based on clinical assessment. Continued follow-up ph ysical examination is recommended. 2. Recommend routine screening mammography in one year. BI-RADS Category 2: Benign finding(s).
== END 2022-03-29 11:52 | disposition home or self-care (01) ==
PROVIDERS: PCP Internal Medicine; Visit Provider Obstetrics & Gynecology
DX: N64.4 Mastodynia (principal); N64.52 Nipple discharge
CPT/HCPCS: 76642; 77062; 77066; G0279

== ENCOUNTER 2022-04-11 07:09 | Outpatient (CLI) | payer OTHER, SELFPAY ==
--- NOTE | ~2022-04-11 | XR_ITS ---
EXAMINATION: XR sacroiliac joints min 3V DATE: 04/11/2022 07:13 INDICATION: Unspecified osteoarthritis. TECHNIQUE: 3 views of the sacroiliac joints were obtained. COMPARISON: None. FINDINGS: Bone alignment is normal. No fracture. There is mild osteoarthritis of the sacroiliac joint s characterized by tiny osteophytes. No evidence of inflammatory arthropathy. IMPRESSION: 1. Mild osteoarthritis of the sacroiliac joints. Reviewed, dictated and finalized at location B.
--- NOTE | ~2022-04-11 | XR_ITS ---
EXAMINATION: XR hand BI arthritis min 3V DATE: 04/11/2022 07:13 INDICATION: Polyarticular osteoarthritis. TECHNIQUE: 4 views of right hand and 4 views of left hand on 7 radiographs were obtained. COMPARISON: None. FINDINGS: RIGHT HAND: Bone alignment is normal. No fracture. There is mild osteoarthritis of second metacarpoph alangeal joint and second distal interphalangeal joint. LEFT HAND: Bone alignment is normal. No fracture. Joint spaces are normal. IMPRESSION: 1. Mild polyarticular osteoarthritis. Reviewed, dictated and finalized at location B.
[2022-04-11 07:55] LABS: Creatine Kinase 75 U/L (30-135)
[2022-04-11 13:00] LABS: Vitamin D 25 Hydroxy 35.1 ng/mL
[2022-04-13 02:06] LABS: Thyroid Peroxidase Antibodies 407 IU/mL (<9)
[2022-04-13 12:27] LABS: Anti Cyclic Citrullinated Pept <16 Units (<20)
[2022-04-14 05:08] LABS: Aldolase 4.5 U/L (<=8.1)
== END 2022-04-11 07:10 | disposition home or self-care (01) ==
PROVIDERS: PCP Internal Medicine; Visit Provider Internal Medicine
DX: M19.90 Unspecified osteoarthritis, unspecified site (principal); M53.3 Sacrococcygeal disorders, not elsewhere classified; M19.041 Primary osteoarthritis, right hand; M19.042 Primary osteoarthritis, left hand
CPT/HCPCS: 36415; 72202; 73130; 82085; 82306; 82550; 86200; 86376; 99212; G0463

== ENCOUNTER 2022-04-27 06:43 | Outpatient (CLI) | payer OTHER, SELFPAY ==
[2022-04-27 08:05] LABS: Free T4 Free Thyroxine 0.79 ng/mL (0.78-2.19)
[2022-04-30 04:14] LABS: Triiodothyronine T3 Free 3.2 pg/mL (2.3-4.2)
== END 2022-04-27 06:44 | disposition home or self-care (01) ==
LOC: ANHLAB 06:45
PROVIDERS: PCP Internal Medicine; Visit Provider Internal Medicine Endocrinology, Diabetes & Metabolism
DX: R76.8 Other specified abnormal immunological findings in serum (principal); R79.89 Other specified abnormal findings of blood chemistry; E04.9 Nontoxic goiter, unspecified; N64.52 Nipple discharge
CPT/HCPCS: 36415; 84146; 84439; 84443; 84481; 99212; G0463

== ENCOUNTER 2022-12-19 06:32 | Outpatient (CLI) | payer OTHER, SELFPAY ==
[2022-12-19 07:28] LABS: Iron 88 ug/dL (37-170)
[2022-12-19 07:29] LABS: Basophils Absolute Auto 0.1 K/mm3 (0.0-0.1); Eosinophils Absolute Auto 0.1 K/mm3 (0-0.3); Eosinophils Percent Auto 1.4 % (0-4.4); Hematocrit 47.9 % (37.0-47.0); Hemoglobin 15.4 g/dL (12.0-15.0); Lymphocytes Absolute Auto 3.69 K/mm3 (0.9-3.2); Mean Corpuscular HGB Conc 32.2 g/dl (32-36); Mean Corpuscular Hemoglobin 28.6 pg (26-34); Mean Platelet Volume 8.7 fl (7.4-10.4); Monocytes Absolute Auto 0.7 K/mm3 (0.1-0.6); Monocytes Percent Auto 6.5 % (2.6-8.5); Neutrophils Absolute Auto 5.6 K/mm3 (1.3-6.7); Neutrophils Percent Auto 54.1 % (45.5-73.1); Platelet Count Result 385 k/mm3 (150-375); Red Blood Count 5.38 M/mm3 (4.2-5.4); Red Cell Distribution Width 14.1 % (11.5-14.5); White Blood Count 10.3 K/mm3 (4.5-10.0)
[2022-12-19 07:32] LABS: Alanine Aminotransferase 29 U/L (6-35); Albumin Level 5.2 g/dL (3.5-5.1); Alkaline Phosphatase 72 U/L (38-126); Anion Gap 11 mmol/L (8-16); Aspartate Amino Transferase 30 U/L (14-36); Bilirubin,Total 0.6 mg/dL (0.2-1.3); Blood Urea Nitrogen 19 mg/dL (7-17); CRP 1.6 mg/dL (<1.0); Calcium 9.2 mg/dL (8.4-10.2); Carbon Dioxide 22 mmol/L (22-30); Chloride 106 mmol/L (98-107); Estimated Glomerular Filt Rate > 60; Glucose 95 mg/dL (65-110); Sodium 139 mmol/L (137-145)
[2022-12-19 07:37] LABS: Percent Iron Saturation 20 % (20-50)
[2022-12-19 07:48] LABS: Free T4 Free Thyroxine 0.87 ng/mL (0.78-2.19)
[2022-12-22 04:10] LABS: Triiodothyronine T3 Free 2.5 pg/mL (2.3-4.2)
== END 2022-12-19 06:33 | disposition home or self-care (01) ==
PROVIDERS: PCP Internal Medicine; Referring Provider Internal Medicine; Visit Provider Internal Medicine Endocrinology, Diabetes & Metabolism
DX: G25.81 Restless legs syndrome (principal)
CPT/HCPCS: 36415; 80053; 82728; 83540; 83550; 84439; 84443; 84481; 85025; 86140

== ENCOUNTER 2024-05-30 09:13 | Emergency (ER) | payer OTHER, SELFPAY ==
--- NOTE | ~2024-05-30 | CT_ITS ---
EXAMINATION: CT abdomen pelvis w con DATE: 05/30/2024 10:16 INDICATION: Right lower quadrant abdominal pain TECHNIQUE: Computed tomography (CT) of the abdomen and pelvis was performed with 100 mL Omnipaque-350 intravenous contrast. Automated exposure control and iterative reconstruction technique were employe d. The dose-length product was 441.74 mGy-cm. COMPARISON: 06/17/2021 FINDINGS: Minimal dependent atelectasis in bilateral lower lobes. Heart size is normal. No pericardial or pleur al effusion. Small amount of pneumobilia within the normal caliber common bile duct and in the nondep endent biliary tree likely related to prior cholecystectomy and sphincterotomy with surgical clips th e gallbladder fossa. Spleen, pancreas, bilateral adrenal glands and kidneys are normal. There is some fluid in the small bowel and cecum with moderate amount of stool in the more distal transverse and d escending colon. No bowel obstruction or abnormal wall thickening. Normal appendix. Bladder, antevert ed uterus and bilateral adnexa are unremarkable with 1.5 cm dominant right ovarian follicle. No free intraperitoneal gas or fluid. No pathologically enlarged abdominal or pelvic lymphadenopathy. Mild conchis mbar spondylosis. IMPRESSION: 1. Fluid in the small bowel and cecum suggesting diarrhea potentially in the setting of a gastroenter itis. No other acute intra-abdominal/pelvic process. Reviewed, dictated and finalized at location B. [employer] IMPRESSION: 1. Fluid in the small bowel and cecum suggesting diarrhea potentially in the se tting of a gastroenteritis. No other acute intra-abdominal/pelvic process.
[2024-05-30 09:21] VITALS: BP 158/109; PULSE 97; RESP 18; O2SAT 100
--- NOTE | 2024-05-30 09:37 | ECG_ITS ---
Test Date: 2024-05-30 09:57:47 Measurements Intervals Mott Rate: 88 P: 39 KS: 115 QRS: 43 QRSD: 102 T: 37 QT: 361 QTc: 437 Interpretive Statements SINUS RHYTHM WITH SHORT KS INTERVAL NONSPECIFIC ST & T-WAVE ABNORMALITY- INF/LAT LEADS BASELINE ARTIFACT- I, II, III, AVR, AVL, AVF BORDERLINE ECG No previous ECG available for comparison Electronically Signed On 05-31-2024 09:08:23 [employer] by Mark Mooney D.O.
--- NOTE | 2024-05-30 09:39 | ED_ITS ---
HPI - Abdominal Pain General Chief Complaint: Abdominal Pain Stated Complaint: abd pain Time Seen by Provider: 05/30/24 09:14 History of Present Illness HPI narrative: Patient is a 40-year-old female who presents to the ER with right lower quadrant abdominal pain. She says she has a history of abdominal migraines and usually takes sumatriptan and Phenergan at home for relief. Patient reports this episode started on Monday but she has not been able to get any relief with her home medications. She is concerned she is dehydrated due to her vomiting and decreased urine output. Patient has a history of pancreatitis, cholecystitis, and has had an ERCP. She denies any chest pain, shortness a breath, fevers. Patient denies alcohol use but endorses use of CBD gummies to help her sleep at night. Related Data Home Medications Medication Instructions Recorded Confirmed sumatriptan succinate 100 mg See Rx Instructions PO .COMPLEX 04/19/21 04/26/22 tablet (Imitrex) PRN Headache Allergies Allergy/AdvReac Type Severity Reaction Status Date / Time levetiracetam Allergy Unknown Unknown Verified 05/30/24 09:58 zonisamide Allergy Unknown Swelling Verified 05/30/24 09:58 Review of Systems Review of Systems: All systems reviewed & are unremarkable except as noted in HPI and below PMFSH Past Medical History Medical History Abdominal migraine Inflammatory arthritis Irritable bowel syndrome Nausea and vomiting in adult Surgical History Surgical History History of bilateral tubal ligation History of bladder suspension procedure History of cholecystectomy History of endometrial ablation History of pancreatic surgery sphincterotomy x3 History of tonsillectomy Family History Family History Mother Alcoholism Diabetes mellitus Hypertension Cerebrovascular accident Arthritis Father Malignant neoplasm of prostate Diabetes mellitus Hypertension Grandparent Heart disease Sibling History of hip replacement Social History Social History Social History: Code status: Full code. Smoking status: Never smoker Alcohol intake: current Alcohol use details: rarely Substance use: current Other substance usage details: CBD gummies at bedtime as needed. Last use: CBD last use 06/15 Living arrangements: with family Spiritual care concerns: No Exam Narrative: GENERAL: Well appearing, well-nourished, non-toxic, in no acute distress. HEAD: Normocephalic, atraumatic. NECK: Supple. No adenopathy, no masses. RESPIRATORY: Airway patent, respirations nonlabored. Clear to auscultation bilaterally, no rales, rhonchi, wheezing. CARDIOVASCULAR: Regular rate and rhythm without murmurs, rubs, or gallops. Peripheral pulses 2+ and equal bilaterally. ABDOMINAL: Soft, tender in all four quadrants, nondistended, no hepatosplenomegaly. Normoactive BS. MUSCULOSKELETAL: Moves all extremities. Strength/ROM intact without gross deformities. SKIN: Warm, dry, normal color. No rashes. NEURO: A&O X3. Speech clear. Cranial nerves II-XII grossly intact. Steady gait. No ataxic movements. PSYCHIATRIC: Appropriate mood and flat affect. Normal interaction. Course Vital Signs Vital signs: Vital Signs Pulse Rate 97 05/30/24 09:21 Respiratory Rate 18 05/30/24 09:21 Blood Pressure 158/109 H 05/30/24 09:21 Pulse Oximetry 100 05/30/24 09:21 Oxygen Delivery Room Air 05/30/24 09:21 Temperature 36.6 C 05/30/24 11:04 Pulse Rate 84 05/30/24 11:04 Respiratory Rate 16 05/30/24 11:04 Blood Pressure 121/75 05/30/24 11:04 Pulse Oximetry 99 05/30/24 11:33 Oxygen Delivery Room Air 05/30/24 09:21 MDM - Abdominal Pain MDM Narrative Medical decision making narrative: Patient is a 40-year-old female who presents to the ER with right lower quadrant abdominal pain. She says she has a history of abdominal migraines and usually takes sumatriptan and Phenergan at home for relief. Patient reports this episode started on Monday but she has not been able to get any relief with her home medications. She is concerned she is dehydrated due to her vomiting and decreased urine output. Patient has a history of pancreatitis, cholecystitis, and has had an ERCP. She denies any chest pain, shortness a breath, fevers. Patient denies alcohol use but endorses use of CBD gummies to help her sleep at night. Labs Ordered: Imaging Ordered: Results: CT abdomen/pelvis showed: Minimal dependent atelectasis in bilateral lower lobes. Heart size is normal. No pericardial or pleural effusion. Small amount of pneumobilia within the normal caliber common bile duct and in the nondependent biliary tree likely related to prior cholecystectomy and sphincterotomy with surgical clips the gallbladder fossa. Spleen, pancreas, bilateral adrenal glands and kidneys are normal. There is some fluid in the small bowel and cecum with moderate amount of stool in the more distal transverse and descending colon. No bowel obstruction or abnormal wall thickening. Normal appendix. Bladder, anteverted uterus and bilateral adnexa are unremarkable with 1.5 cm dominant right ovarian follicle. No free intraperitoneal gas or fluid. No pathologically enlarged abdominal or pelvic lymphadenopathy. Mild lumbar spondylosis. Fluid in the small bowel and cecum suggesting diarrhea potentially in the setting of a gastroenteritis. No other acute intra-abdominal/pelvic process. 1245-Pt continues to have worsening abdominal pain. Awaiting call back from pt's OBGYN. 1310- Spoke with pt's OBGYN, who referred pt here. She advises pt follows up with her PCP. 1330-Pt continues to complain of abdominal pain and nausea. Will give pt Reglan, Benadryl, and Dilaudid to help treat symptoms. Diagnosis: Gastroenteritis Consults: OBGYN (see above) Patient Education/Shared MDM: 1400- Patient reports relief after Reglan/ Benadryl/Dilaudid administration. Results were shared with patient. Patient advised to call her primary care provider after she is discharged today and schedule a follow-up appointment for tomorrow. Patient verbalizes understanding is in agreement with plan. Differential Diagnosis Differential diagnosis: Likely abdominal pain, acute appendicitis, constipation, diverticulitis, gastroenteritis, pancreatitis and small bowel obstruction Lab Data Attestation: I reviewed the patient's lab results. 05/30/24 09:40 05/30/24 09:40 Labs: Lab Results 05/30/24 05/30/24 05/30/24 Range/Units 09:40 10:34 10:59 WBC 9.7 (4.5-10.0) K/mm3 RBC 5.77 H (4.2-5.4) M/mm3 Hgb 16.5 H (12.0-15.0) g/dL Hct 51.0 H (37.0-47.0) % MCV 88.4 (80-100) fl MCH 28.6 (26-34) pg MCHC 32.4 (32-36) g/dl RDW 13.6 (11.5-14.5) % Plt Count 393 H (150-375) k/mm3 MPV 8.4 (7.4-10.4) fl Immature Gran % (Auto) 0.5 (0-0.5) % Neut % (Auto) 60.4 (45.5-73.1) % Lymph % (Auto) 28.8 (18.3-44.2) % [place] % (Auto) 8.2 (2.6-8.5) % Eos % (Auto) 1.6 (0-4.4) % Baso % (Auto) 0.5 (0.2-1.2) % Lymph # (Auto) 2.78 (0.9-3.2) K/mm3 Henderson # (Auto) 0.8 H (0.1-0.6) K/mm3 Eos # (Auto) 0.2 (0-0.3) K/mm3 Baso # (Auto) 0.1 (0.0-0.1) K/mm3 Abs Immat Gran (auto) 0.05 H (0.00-0.031) K/mm3 Absolute Neuts (auto) 5.8 (1.3-6.7) K/mm3 Absolute Nucleated RBC 0.000 (0.0-0.012) K/mm3 Nucleated RBC % 0.0 (0.0-0.2) % PT 13.7 (11.1-14.7) Seconds INR 1.0 APTT 32.7 (22.3-36.8) Seconds Sodium 137 (137-145) mmol/L Potassium 3.7 (3.4-5.0) mmol/L Chloride 103 (98-107) mmol/L Carbon Dioxide 24 (22-30) mmol/L Anion Gap 10 (4-12) mmol/L BUN 14 D (7-17) mg/dL Creatinine 0.80 (0.7-1.0) mg/dL Estim Creat Clear Calc Not Reportable Estimated GFR > 60 (59 - ) Glucose 90 (65-110) mg/dL Lactic Acid (0.7-2.0) mmol/L Calcium 9.5 (8.4-10.2) mg/dL Total Bilirubin 0.7 (0.2-1.3) mg/dL AST 28 (14-36) U/L ALT 21 (6-35) U/L Alkaline Phosphatase 56 (38-126) U/L Troponin I < 0.012 (0.000-0.034) ng/mL Total Protein 8.0 (6.3-8.2) g/dL Albumin 4.8 (3.5-5.1) g/dL Lipase 158 (23-300) U/L Urine Color Yellow (Yellow) Urine Appearance Cloudy H (Clear) Urine pH 6.0 (5.0-9.0) Ur Specific [place] 1.020 (1.001-1.035) Urine Protein Negative (Negative) mg/dL Urine Glucose (UA) Negative (Negative) mg/dL Urine Ketones Trace H (Negative) mg/dL Ur Blood (Man) Negative (Negative) Urine Nitrate Negative (Negative) Urine Bilirubin Negative (Negative) Urine Urobilinogen 1.0 (<2.0) mg/dL Add Ur Microanalysis Reviewed Leukocyte Esterase Rfl Negative (Negative) JAMILAH/UL Urine RBC 6-10 H (0-2) /hpf Urine WBC 0-5 (0-3) /hpf Ur Squamous Epith Cells Moderate (Few) /hpf Urine Bacteria Rare /hpf Urine Casts 3-5 Urine Opiates Screen Positive A (Negative) Urine Methadone Screen Negative (Negative) Ur Barbiturates Screen Negative (Negative) Ur Phencyclidine Scrn Negative (Negative) Ur Amphetamine Screen Negative (Negative) U Benzodiazepines Scrn Negative (Negative) Urine Cocaine Screen Negative (Negative) U Cannabinoids Screen Positive A (Negative) Ethyl Alcohol < 10 (<10) mg/dL Influenza A (RT-PCR) Negative (Negative) Influenza B (RT-PCR) Negative (Negative) RSV (RT-PCR) Negative (Negative) SARS-CoV-2 RNA (RT-PCR) Negative (Negative) 05/30/24 Range/Units 12:21 WBC (4.5-10.0) K/mm3 RBC (4.2-5.4) M/mm3 Hgb (12.0-15.0) g/dL Hct (37.0-47.0) % MCV (80-100) fl MCH (26-34) pg MCHC (32-36) g/dl RDW (11.5-14.5) % Plt Count (150-375) k/mm3 MPV (7.4-10.4) fl Immature Gran % (Auto) (0-0.5) % Neut % (Auto) (45.5-73.1) % Lymph % (Auto) (18.3-44.2) % Henderson % (Auto) (2.6-8.5) % Eos % (Auto) (0-4.4) % Baso % (Auto) (0.2-1.2) % Lymph # (Auto) (0.9-3.2) K/mm3 [place] # (Auto) (0.1-0.6) K/mm3 Eos # (Auto) (0-0.3) K/mm3 Baso # (Auto) (0.0-0.1) K/mm3 Abs Immat Gran (auto) (0.00-0.031) K/mm3 Absolute Neuts (auto) (1.3-6.7) K/mm3 Absolute Nucleated RBC (0.0-0.012) K/mm3 Nucleated RBC % (0.0-0.2) % PT (11.1-14.7) Seconds INR APTT (22.3-36.8) Seconds Sodium (137-145) mmol/L Potassium (3.4-5.0) mmol/L Chloride (98-107) mmol/L Carbon Dioxide (22-30) mmol/L Anion Gap (4-12) mmol/L BUN (7-17) mg/dL Creatinine (0.7-1.0) mg/dL Estim Creat Clear Calc Estimated GFR (59 - ) Glucose (65-110) mg/dL Lactic Acid 1.3 (0.7-2.0) mmol/L Calcium (8.4-10.2) mg/dL Total Bilirubin (0.2-1.3) mg/dL AST (14-36) U/L ALT (6-35) U/L Alkaline Phosphatase (38-126) U/L Troponin I (0.000-0.034) ng/mL Total Protein (6.3-8.2) g/dL Albumin (3.5-5.1) g/dL Lipase (23-300) U/L Urine Color (Yellow) Urine Appearance (Clear) Urine pH (5.0-9.0) Ur Specific [place] (1.001-1.035) Urine Protein (Negative) mg/dL Urine Glucose (UA) (Negative) mg/dL Urine Ketones (Negative) mg/dL Ur Blood (Man) (Negative) Urine Nitrate (Negative) Urine Bilirubin (Negative) Urine Urobilinogen (<2.0) mg/dL Add Ur Microanalysis Leukocyte Esterase Rfl (Negative) JAMILAH/UL Urine RBC (0-2) /hpf Urine WBC (0-3) /hpf Ur Squamous Epith Cells (Few) /hpf Urine Bacteria /hpf Urine Casts Urine Opiates Screen (Negative) Urine Methadone Screen (Negative) Ur Barbiturates Screen (Negative) Ur Phencyclidine Scrn (Negative) Ur Amphetamine Screen (Negative) U Benzodiazepines Scrn (Negative) Urine Cocaine Screen (Negative) U Cannabinoids Screen (Negative) Ethyl Alcohol (<10) mg/dL Influenza A (RT-PCR) (Negative) Influenza B (RT-PCR) (Negative) RSV (RT-PCR) (Negative) SARS-CoV-2 RNA (RT-PCR) (Negative) Imaging Data Attestation: I personally reviewed and interpreted this imaging study as follows: Radiologist's impression: ITS Impressions Abdomen/Pelvis CT 05/30/24 10:24 IMPRESSION: 1. Fluid in the small bowel and cecum suggesting diarrhea potentially in the setting of a gastroenteritis. No other acute intra-abdominal/pelvic process. Discharge Plan Discharge Clinical Impression: Abdominal migraine Patient Disposition: Home, Self-Care Condition: Stable Instructions: Antibiotic Form, Abdominal Pain (ED) Additional Instructions: Discussed with patient results of workup and diagnosis. Discussed need for follow-up with primary care, proper use of medication, and reasons to return to the emergency department. Patient understands and agrees to current treatment plan. Prescriptions: No Action sumatriptan succinate [Imitrex] 100 mg tablet See Rx Instructions PO .COMPLEX PRN (Reason: Headache) Rx Instructions: take 1 tab at onset of headache; if no relief, may repeat 1 tab after at least 2 hrs; max = 2 tabs/24 hrs PO PRN; Pt states she hasn't taken for two months topiramate 50 mg tablet 150 mg PO DAILY Qty: 270 3RF Rx Instructions: Pt takes at night azithromycin [Zithromax Z-Dre] 250 mg tablet See Rx Instructions PO .COMPLEX Qty: 6 0RF Rx Instructions: For 250 mg dose pack: take 500 mg today (day 1), then 250 mg for 4 days (days 2-5) PO ondansetron 4 mg tablet,disintegrating 4 mg PO Q6H PRN (Reason: nausea and vomiting) Qty: 10 0RF sulfamethoxazole-trimethoprim [Bactrim DS] 800-160 mg tablet 1 tablet PO Q12H Qty: 14 0RF phenazopyridine [Pyridium] 200 mg tablet 200 mg PO TID PRN (Reason: pain) Qty: 18 0RF nitrofurantoin monohyd/m-cryst [Macrobid] 100 mg capsule 100 mg PO ONCE PRN (Reason: with intercourse) Qty: 30 0RF Rx Instructions: must administer with a meal/food pantoprazole 40 mg tablet,delayed release (DR/EC) 40 mg PO QAM Qty: 180 2RF ofloxacin 0.3 % drops See Rx Instructions EACH EYE .COMPLEX Qty: 10 0RF Rx Instructions: put 1-2 drps into affected eye(s) every 2-4 h x 2 days, then 1-2 drps 4 times/day until symptoms resolve azithromycin [Zithromax TRI-DRE] 500 mg tablet See Rx Instructions PO .COMPLEX Qty: 3 0RF Rx Instructions: For 500 mg dose pack: take 500 mg once daily for 3 days PO montelukast [Singulair] 10 mg tablet 10 mg PO DAILY Qty: 180 1RF spironolactone 100 mg tablet 100 mg PO DAILY Qty: 180 1RF gabapentin 300 mg capsule 900 mg PO DAILY Qty: 270 2RF Rx Instructions: Pt states she takes at night nortriptyline 50 mg capsule 100 mg PO DAILY Qty: 180 3RF Rx Instructions: Pt takes at night zolpidem [Ambien] 10 mg tablet 10 mg PO .qhs PRN (Reason: insomnia) Qty: 90 1RF valacyclovir [Valtrex] 500 mg tablet See Rx Instructions PO Q12H Qty: 180 2RF Rx Instructions: take two pills by mouth every 12 hours for 7-10 days then take one pill by mouth daily fluconazole 150 mg tablet 150 mg PO ONCE Qty: 1 0RF Rx Instructions: as a single dose promethazine 25 mg tablet 25 mg PO Q6H PRN (Reason: nausea) Qty: 30 1RF Follow-up/Referrals: Cesar Jiménez MD [Primary Care Provider] - Time of Disposition: 14:18
[2024-05-30 09:49] LABS: Basophils Absolute Auto 0.1 K/mm3 (0.0-0.1); Basophils Percent Auto 0.5 % (0.2-1.2); Eosinophils Absolute Auto 0.2 K/mm3 (0-0.3); Eosinophils Percent Auto 1.6 % (0-4.4); Hemoglobin 16.5 g/dL (12.0-15.0); Immature Granulocyte Absolute 0.05 K/mm3 (0.00-0.031); Immature Granulocyte Percent A 0.5 % (0-0.5); Lymphocytes Absolute Auto 2.78 K/mm3 (0.9-3.2); Lymphocytes Percent Auto 28.8 % (18.3-44.2); Mean Corpuscular HGB Conc 32.4 g/dl (32-36); Mean Corpuscular Hemoglobin 28.6 pg (26-34); Mean Corpuscular Volume 88.4 fl (80-100); Mean Platelet Volume 8.4 fl (7.4-10.4); Monocytes Absolute Auto 0.8 K/mm3 (0.1-0.6); Monocytes Percent Auto 8.2 % (2.6-8.5); Neutrophils Absolute Auto 5.8 K/mm3 (1.3-6.7); Neutrophils Percent Auto 60.4 % (45.5-73.1); Platelet Count Result 393 k/mm3 (150-375); Red Blood Count 5.77 M/mm3 (4.2-5.4); Red Cell Distribution Width 13.6 % (11.5-14.5); White Blood Count 9.7 K/mm3 (4.5-10.0)
[2024-05-30] MEDS: MORPHINE SULFATE (*CRX) 4 MG/ML INJ IV PUSH (09:56)
[2024-05-30] MEDS: ONDANSETRON INJ 4 MG/2 ML VIAL IV PUSH (09:56)
[2024-05-30] MEDS: SODIUM CHLORIDE 0.9% IV 1,000 ML 999 ML IV CONT (09:56)
[2024-05-30 09:57] VITALS: BP 130/98; PULSE 88; RESP 18; O2SAT 100
[2024-05-30] MEDS: KETOROLAC 30 MG/ML VIAL (*BKC) IV PUSH (09:57)
[2024-05-30 10:00] LABS: Alanine Aminotransferase 21 U/L (6-35); Albumin Level 4.8 g/dL (3.5-5.1); Alkaline Phosphatase 56 U/L (38-126); Anion Gap 10 mmol/L (4-12); Aspartate Amino Transferase 28 U/L (14-36); Bilirubin,Total 0.7 mg/dL (0.2-1.3); Blood Urea Nitrogen 14 mg/dL (7-17); Calcium 9.5 mg/dL (8.4-10.2); Carbon Dioxide 24 mmol/L (22-30); Chloride 103 mmol/L (98-107); Estimated Glomerular Filt Rate > 60; Glucose 90 mg/dL (65-110); Lipase 158 U/L (23-300); Potassium 3.7 mmol/L (3.4-5.0); Sodium 137 mmol/L (137-145)
[2024-05-30 10:06] LABS: Add Urine Microscopic? YES; Appearance Urine Cloudy (Clear); Bacteria Urine Rare /hpf; Bilirubin Urine Negative (Negative); Blood Urine Negative (Negative); Color Urine Yellow (Yellow); Glucose Urine UA Negative (Negative); Ketones Urine Trace mg/dL (Negative); Leukocyte Esterase Ur Negative LEU/UL (Negative); Need Manual Microscopic Reviewed; Nitrate Urine Negative (Negative); Protein Urine Negative (Negative); Squamous Epithelial Cell Urine Moderate /hpf (Few); WBC Urine 0-5 /hpf (0-3)
[2024-05-30 10:10] LABS: Troponin I < 0.012 ng/mL (0.000-0.034)
[2024-05-30 10:22] LABS: Amphetamine Screen Urine Negative (Negative); Barbiturate Screen Urine Negative (Negative); Benzodiazepines Screen Urine Negative (Negative); Cannabinoid Screen Urine Positive (Negative); Cocaine Screen Urine Negative (Negative); Methadone Screen Urine Negative (Negative); Opiate Screen Urine Positive (Negative); Phencyclidine Screen Urine Negative (Negative)
[2024-05-30 11:04] VITALS: BP 121/75; PULSE 84; RESP 16; TEMP 36.6; O2SAT 98
[2024-05-30 11:14] LABS: Influenza A QL RT-PCR Negative (Negative); Influenza B QL RT-PCR Negative (Negative); RSV RNA, RT-PCR Negative (Negative); SARS-CoV-2 RNA PCR Negative (Negative)
[2024-05-30 11:18] LABS: Prothrombin Time 13.7 Seconds (11.1-14.7)
[2024-05-30 11:19] LABS: Partial Thromboplastin Time 32.7 Seconds (22.3-36.8)
[2024-05-30 11:33] VITALS: O2SAT 99
--- NOTE | 2024-05-30 11:34 | PC.NURSE ---
Called phlebotomy for assistance with lab draw on pt. Phleb states, give me a little bit.
[2024-05-30 11:54] LABS: Ethanol < 10 mg/dL (<10)
[2024-05-30 12:52] LABS: Lactic Acid Reflex 1.3 mmol/L (0.7-2.0)
[2024-05-30] MEDS: HYDROmorphone HCL INJ (*CRX) 1 MG/ML SYR 0.5 MG IV PUSH (12:53)
[2024-05-30] MEDS: METOCLOPRAMIDE HCL INJ 10 MG/2 ML VIAL IV PUSH (12:53)
[2024-05-30] MEDS: diphenhydrAMINE HCl INJ 50 MG/ML VIAL 25 MG IV PUSH (12:53)
[2024-05-30] MEDS: BELLADONNA ALK/PHENOB ELIX 10 ML, MAG HYDROX/ALUMINUM HYD/SIMETH 30 ML, LIDOCAINE HCL 2... PO (12:54)
== END 2024-05-30 14:33 | disposition home or self-care (01) ==
PROVIDERS: Emergency Provider Registered Nurse; PCP Internal Medicine
DX: G43.D0 Abdominal migraine, not intractable (principal); Z20.822 Contact with and (suspected) exposure to COVID-19; M19.90 Unspecified osteoarthritis, unspecified site; K58.9 Irritable bowel syndrome, unspecified; Z79.899 Other long term (current) drug therapy; R94.31 Abnormal electrocardiogram [ECG] [EKG]
CPT/HCPCS: 36415; 74177; 80053; 80307; 81001; 82077; 83605; 83690; 84484; 85025; 85610; 85730; 87637; 93005; 96361; 96374; 96375; 99285; A9270; J1171; J1200; J1885; J2270; J2405; J2765; J7030; Q9967

== ENCOUNTER 2024-09-26 15:10 | Outpatient (CLI) | payer OTHER, SELFPAY ==
--- NOTE | ~2024-09-26 | MM_ITS ---
EXAMINATION: MM screening hans BI w will HISTORY: Screening TECHNIQUE: Craniocaudal and mediolateral oblique 3-D tomosynthesis images were obtained and synthetic 2-D images were generated. CAD analysis was submitted and interpreted. COMPARISON: Comparison to multiple prior studies sequentially, with oldest reviewed study dated 10/30. BREAST PARENCHYMAL COMPOSITION: Dense: The breasts are extremely dense, which lowers the sensitivity of mammography. FINDINGS: There is no evidence of suspicious mass, calcification, or architectural distortion to sugg est malignancy in either breast. There has been no suspicious interval change. IMPRESSION: 1. No mammographic evidence of malignancy. 2. Recommend routine screening mammography in one year. BI-RADS Category 1: Negative Reviewed, dictated and finalized at location B.
--- OUTSIDE RECORDS SUMMARY | 2024-09-26 15:37 | XMS_ITS | Clinical Summary ---
Author Organization [facility] [employer] Address [address] [place] [address] Care Team Providers Care Political Director Name Role Phone Cesar Jiménez MD Primary Care Provider [phone] Jesse Newell MD Unavailable + [phone] Source Comments [facility],non-owned Affiliates and Associated Physician Practices is amultiple site organization consisting of ambulatory clinics and hospital sitesin [place], [place], [place] and [place]. This disclosure is being madepursuant to the Care Everywhere program and may not contain all information available regarding this patient. Last updated 18.[facility] Allergies Active Allergy Reactions Criticality Noted Date Comments Levetiracetam Swelling 04/14/2022 Zonisamide Swelling 04/14/2022 Medications * Be aware that medications may not be up to date on this document. Alwaysverify current medications with the patient. Medication Sig Dispensed Refills Start Date End Date Status cetirizine (ZyrTEC) 10 MG tablet Take 10 mg by mouth once daily 11/09/2021 Active gabapentin (Neurontin) 300 MG capsule TAKE 3 CAPSULES BY MOUTH AT BEDTIME 01/21/2022 Active nortriptyline (Pamelor) 50 MG capsule TAKE 2 CAPSULES BY MOUTH ONCE DAILY AT BEDTIME 01/21/2022 Active pantoprazole EC (Protonix) 40 MG tablet Take 40 mg by mouth once daily 01/21/2022 Active spironolactone (Aldactone) 100 MG tablet 03/31/2022 Active topiramate (Topamax) 50 MG tablet Take 150 mg by mouth at bedtime 01/24/2022 Active zolpidem (Ambien) 10 MG tablet Take 10 mg by mouth nightly as needed For insomnia. 01/21/2022 Active valACYclovir (Valtrex) 500 MG tablet Take by mouth 2 times daily Active Active Problems Patient Care Coordination No te Formatting of this note migh t be different from the original. Primary Care Provider: Cesar Jiménez MD [address] [facility] [address] Referring Provider: Jesse Hernandez MD [address] [place] [address] No known active problems Family History Medical History Relation Name Comments Cancer - Prostate Father Cancer - Breast Maternal Cousin Relation Name Status Comments Father Maternal Cousin Alive Social History Tobacco Use Types Packs/Day Years Used Date Smoking Tobacco: Never Smokeless Tobacco: Never Alcohol Use Standard Drinks/Week Comments Yes 0 (1 standard drink = 0.6 oz pur e alcohol) rarely Sex and Gender Information Value Date Recorded Sex Assigned at Not on file Gender Identity Not on file Sexual Orientation Not on file Last Filed Vital Signs Vital Sign Reading Time Taken Comments Blood Pressure 133/81 04/14/2022 9:29 AM CDT Pulse 92 04/14/2022 9:29 AM CDT Temperature 36.5 C (97.7 F) 04/14/2022 9:29 AM CDT Respiratory Rate - - Oxygen Saturation - - Inhaled Oxygen Concentration - - Weight 89.7 kg (197 lb 12.8 oz) 04/14/2022 9:29 AM CDT Height 174 cm (5' 8.5 ) 04/14/2022 9:29 AM CDT Body Mass Index 29.64 04/14/2022 9:29 AM CDT Plan of Treatment Health Maintenance Due Date Last Done Comments COLOGUARD (AGES 45-75) - COL ON CA SCREENING 1975 COLON MONITORING 1975 COLONOSCOPY - COLON CA SCREENING 1975 CT COLONOGRAPHY - COLON CA SCREENING 1975 Colorectal Cancer Screening 1975 FIT - COLON CA SCREENING 1975 FLEX SIG - COLON CA SCREENING 1975 LIPID TESTING 1975 MAMMOGRAM 1975 PAP SMEAR 1975 HIV SCREENING 10/02/1990 HEPATITIS C SCREENING 09/28/1993 DTAP/TDAP/TD VACCINES (1 - Tdap) 10/02/1994 HEPATITIS B VACCINE (1 of 3 - 19+ 3-dose series) 10/02/1994 SCREENING FOR DIABETES 04/14/2022 01/26/2009 COVID-19 VACCINE (1 - 2023-2 5 season) 2024 INFLUENZA VACCINE (#1) 2024 DEPRESSION SCREENING 07/10/2024 ZOSTER VACCINE (1 of 2) 10/02/2025 HIB VACCINE Aged Out No longer eligi ble based on patient's age to complete this topic HPV VACCINE Aged Out No longer eligi ble based on patient's age to complete this topic MENINGOCOCCAL (Group B) VACC INE SHARED DECISION-MAKING Aged Out No longer eligibl e based on patient's age to complete this topic MENINGOCOCCAL GROUPS A/C/Y/W VACCINE Aged Out No longer eligible b ased on patient's age to complete this topic PNEUMOCOCCAL VACCINE Aged Out No long er eligible based on patient's age to complete this topic Procedures Procedure Name Priority Date/Time Associated Diagnosis Comments COMPREHENSIVE METABOLIC PANEL STAT 01/26/2009 11:30 PM CDT Thrt [facility] from Last 3 Months or Most Recently Relevant to Health Maintenance Results * (ABNORMAL) COMPREHENSIVE METABOLIC PANEL (01/26/2009 11:30 PM CDT) Sodium 134(L) 137 - 145 mmol/L [facility] Potassium 4.4 3.6 - 5.0 mmol/L [facility] Chloride 102 98 - 107 mmol/L [facility] BUN 5(L) 7 - 17 mg/dl [facility] Creatinine 0.40(L) 0.52 - 1.04 mg/dl [facility] Glucose 77 65 - 105 mg/dl [facility] Calcium 8.5 8.4 - 10.2 mg/dl [facility] Alkaline Phosphatase 122 38 - 126 U/L [facility] AST 16 8 - 39 U/L [facility] Bilirubin Total 0.2 0.2 - 1.3 mg/dl [facility] Protein Total 6.5 6.3 - 8.2 gm/dl [facility] Albumin 3.6(L) 3.9 - 5.0 gm/dl [facility] CO2 19(L) 22 - 30 mmol/L [facility] ALT 11 9 - 52 U/L [facility] eGFR by MDRD 184(H) 88 - 128 mL/min/1.7 3m2 [facility] Comment eGFR [facility] Comment: The eGFR does not apply to patients who are younger than 18 or older than 70. BLOOD SPECIMEN / Unknown 01/26/2009 11:30 PM CDT Marta Hayden MD LAB - CHEMISTRY ORDERABLES [facility] [address] [place] [address] from Last 3 Months or Most Recently Relevant to Health Maintenance Care Teams Political Director Relationship Specialty Start Date End Date Cesar Jiménez MD [address] [place] [address] PCP - General Internal Medicine 04/14/22 Jesse Newell MD [address] [place] [address] Cardiac Specialist Obstetrics and Gynecology 04/14/22
== END 2024-09-26 15:11 | disposition home or self-care (01) ==
LOC: ANHIMG 15:11
PROVIDERS: PCP Internal Medicine; Visit Provider Obstetrics & Gynecology
DX: Z12.31 Encounter for screening mammogram for malignant neoplasm of breast (principal)
CPT/HCPCS: 77063; 77067

== ENCOUNTER 2025-05-09 11:28 | Outpatient (CLI) | payer OTHER, SELFPAY ==
--- OUTSIDE RECORDS SUMMARY | 2025-05-09 11:39 | XMS_ITS | Clinical Summary ---
Author Organization [facility] [employer] Address [address] [place] [address] Care Team Providers Care Commissioning Specialist Name Role Phone Cesar Jiménez MD Primary Care Provider [phone] Jesse Newell MD Unavailable [phone] Source Comments [facility],non-owned Affiliates and Associated Physician Practices is amultiple site organization consisting of ambulatory clinics and hospital sitesin [place], [place], [place] and [place]. This disclosure is being madepursuant to the Care Everywhere program and may not contain all information available regarding this patient. Last updated 18.[facility] Allergies Active Allergy Reactions Criticality Noted Date Comments Levetiracetam Swelling 04/14/2022 Zonisamide Swelling 04/14/2022 Medications * Be aware that medications may not be up to date on this document. Alwaysverify current medications with the patient. cetirizine (ZyrTEC) 10 MG tablet Take 10 [...] Primary Care Provider: Cesar Jiménez MD [address] [facility] [address] Referring Provider: Jesse Hernandez MD [address] [facility] [address] [facility] [address] [place] [address] No known active problems Family History Medical History Relation Name Comments Cancer - Prostate Father Cancer - Breast Maternal Cousin Relation Name Status Comments Father Maternal Cousin Alive Social History Tobacco Use Types Packs/Day Years Used Date Smoking Tobacco: Never Smokeless Tobacco: Never Alcohol Use Standard Drinks/Week Comments Yes 0 (1 standard drink = 0.6 oz pur e alcohol) rarely Comments No Sex and Gender Information Value Date Recorded Sex Assigned at Not on file 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 Gender Identity Not on file Sexual Orientation Not on file 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 [employer] Not on file Not on file N ot on file Last Filed Vital Signs Vital Sign Reading Time Taken Comments Blood Pressure 133/81 04/14/2022 9:29 AM CDT Pulse 92 04/14/2022 9:29 AM CDT Temperature 36.5 C (97.7 F) 04/14/2022 9:29 AM CDT Respiratory Rate - - Oxygen Saturation - - Inhaled Oxygen Concentration - - Weight 89.7 kg (197 lb 12.8 oz) 04/14/2022 9:29 AM CDT Height 174 cm (5' 8.5) 04/14/2022 9:29 AM CDT Body Mass Index [...] SCREENING 1975 LIPID TESTING 1975 MAMMOGRAM 1975 HIV SCREENING 10/02/1990 HEPATITIS C SCREENING 09/28/1993 DTAP/TDAP/TD VACCINES (1 - Tdap) 10/02/1994 HEPATITIS B VACCINE (1 of 3 - 19+ 3-dose series) 10/02/1994 SCREENING FOR DIABETES 04/14/2022 01/26/2009 DEPRESSION SCREENING 07/10/2024 COVID-19 VACCINE (1 - 2023-2 5 season) 2025 INFLUENZA VACCINE (#1) 2025 ZOSTER VACCINE (1 of 2) 10/02/2025 HIB [...] CDT) Sodium 134(L) 137 - 145 mmol/L [facility] Potassium 4.4 3.6 - 5.0 mmol/L [facility] Chloride 102 98 - 107 mmol/L [facility] BUN 5(L) 7 - 17 mg/dl [facility] Creatinine 0.40(L) 0.52 - 1.04 mg/dl [facility] Glucose 77 65 - 105 mg/dl [facility] Calcium 8.5 8.4 - 10.2 mg/dl [facility] Alkaline Phosphatase 122 38 - 126 U/L [facility] AST 16 8 - 39 U/L [facility] Bilirubin Total 0.2 0.2 - 1.3 mg/dl [facility] Protein Total 6.5 6.3 - 8.2 gm/dl [facility] Albumin 3.6(L) 3.9 - 5.0 gm/dl [facility] CO2 19(L) 22 - 30 mmol/L [facility] ALT 11 9 - 52 U/L [facility] eGFR by MDRD 184(H) 88 - 128 mL/min/1.7 3m2 [facility] Comment eGFR [facility] Comment: The eGFR does not apply to patients who are younger than 18 or older than 70. BLOOD SPECIMEN / Unknown 01/26/2009 11:30 PM CDT us Marta Hayden MD LAB - CHEMISTRY ORDERABL ES Final Result [facility] [address] [place] [address] from Last 3 Months or Most Recently Relevant to Health Maintenance Insurance [facility] Care Teams Commissioning Specialist Relationship Specialty Start Date End Date Cesar Jiménez MD [address] [place] [address] PCP - General Internal Medicine 04/14/22 Jesse Newell MD [address] [address] [address] [place] [address] Engineering Coordinator Obstetrics and Gynecology 04/14/22
--- OUTSIDE RECORDS SUMMARY | 2025-05-09 11:39 | XMS_ITS | Data Portability ---
Author Organization [facility], Main Office Address [address] [place] [address] [address] [place] [address] Care Team Providers Care Ell Teacher Name Role Phone SRIKANTH EVANGELISTA Primary Care Provider [phone] Assessment No assessment recorded. Plan of Treatment Reminders Order Date Submit Date Provider Last Modified By Organization Details Last Modified Time Details Appointments None record ed. Lab None record ed. Referral None record ed. Procedures None record ed. Surgeries None record ed. Imaging None record ed. Medication Orders None record ed. Patient TargetsNo targets recorded. Patient Instructions Encounter Date Encounter Id Patient Instructions Last Modified By Organization Details Last Modified Time 08/07/2018 [id number] hemorrhoids: car e instructions Not available 08/07/2018 19:15:30 [email or web address] Not available 2018 19:10:13 She will follow up with Dr. Villanueva as above. I will see her only PRN. On today's visit I spent a total of 45 minutes [id number] with the patient and over 50% of this time was spent discussing treatment options, risks/benefits of each option and alternatives. Not available 08/07/2018 19:11:19 Reason for Referral None Reported. Problems Name Problem SNOMED Code Status Onset Date Resolution Date Notes Provider Name and Address Organization Details Recorded Time External hemorrhoids 85725459 Active 2018 Grazyna Batista MD [address] [facility],[address], [place], [address], [facility] 9 19:00:35 Pile easily reducible 163879479 Active 2018 Grazyna Batista MD [address] [place] [address],[address], [place], [address], [facility] 9 19:04:00 Chronic idiopathic constipation 93798819 Active 2018 Grazyna Batista MD [address] [place] [address],[address], [address], [facility] 9 19:04:12 Cyclical vomiting syndrome 57355972 Active 2018 [place] [address] [place] [address],[address], [place], [address], [facility] 9 19:05:34 Problem Notes None recorded. Procedures Surgical History Date Name Laterality Status Provider Name and Address Organization Details Recorded Time 2018 Anoscopy completed Grazyna Batista MD [address] [place] [address],[address], [place], [address] , [facility] 9 19:00:25 2017 Date of Last [facility]amm[facility] 9 14:53:[address] [facility] 9 14:52:31 Tonsillectomy completed [facility] 9 14:52:37 Cholecystectomy completed [facility] 9 14:52:43 endoscopic retrograd e cholangiopancreatography with pancreatic sphincterotomy [facility] 9 14:53:08 Imaging Results None recorded. Procedure Notes None recorded. Medical Equipment None Reported. Allergies Allergen ID Allergen Name Allergen Category Reaction Reaction Severity Criticality Documentation Date Start Date Code Code System Note Provider Name and Address Organization Details Recorded Time 1950 Keppra medicatio n facial swelling Not available Not available 08/07/2018 [id number] RxNorm [facility] 9 14:45:31 Medications Name Sig Start Date Stop Date Status Note LastModified by Organization Details LastModified Time gabapentin 300 mg caps active Not Available Not Available Not Available nitrofurantoin monohydrate/macr ocrystals 100 mg caps active Not Available Not Available Not Available topiramate 50 mg tabs active Not Available Not Available Not Available spironolactone 100 mg tabs active Not Available Not Available Not Available nortriptyline hcl 50 mg caps active Not Available Not Availab le Not Available pantoprazole sodium 40 mg tbec active Not Available Not Available Not Available promethazine hydrochloride 25 mg tabs 08/07 completed Not Available Not Available Not Available valacyclovir hcl 1 gm tabs active Not Available Not Available No t Available Vitals Date Recorded Body weight Body mass index (BMI) Body height Body temperature Respiratory rate Heart rate Systolic And Diastolic Provider Name and Address Organization Details Last Updated DateTime 9 [address]855.3 8 g 25.9 kg/m2 175.26 cm 97.9 [degF] 12 /min 109 /min 146/99 mm[Hg] Flores Jay [facility] 9 14:58:45 Social History Question Answer Notes LastModified by Organizat ion Details LastModified Time Tobacco Smoking Status Never Smoker Not Available [facility] 05/12/2020 03:38:34 How Much Tobacco Do You Chew? None [id number] Information not available 05/12/2020 Alcohol Use Yes [email or web address] Information not available 08/07/2018 Alcohol Amount Occasional [email or web address] Informat ion not available 08/07/2018 Caffeine Use No [email or web address] Informatio n not available 08/07/2018 Caffeine Type Coffee Informati on not available 08/07/2018 Caffeine Amount 1c/day [email or web address] Information not available 08/07/2018 Illicit Drug Use No [email or web address] Information not available 08/07/2018 What Was The Date Of Your Most Recent Tobacco Screening? 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 Family History Relationship Description Onset Age of this Age Resolved Age Notes LastModified by Organization Details LastModified Time Father Carcinoma of prostate 60 68 [email or web address] Not available 14:49:53 Father Hypertensive disorder 60 [email or web address] Not available 14:50:06 Father Diabetes mellitus 60 Not available 14:50:48 Mother Hypertensive disorder 60 [email or web address] Not available 14:50:06 Mother Cerebrovascu lar accident 74 Not available 08/07/2018 14:50:25 Mother Diabetes mellitus 60 [email or web address] Not available 14:50:48 Medical History Condition Response Coronary Artery Disease N Other N Atrial Fibrillation N Kidney Stones N Hyperthyroidism N Hernia N Glaucoma N Depression N COPD N Hypothyroidism N Accidental Bowel Leakage N Headaches/Migraines N Deep Vein Thrombosis N Cardiac Dysrhythmia N Anxiety Disorder N MRSA/VRE Exposure N Diverticulosis N Cancer N Stroke N Head Trauma N Genital Warts N Crohn's Disease N Liver Disease/Hepatitis N HIV/AIDS N High Cholesterol N Irritable Bowel Syndrome N Kidney Disease N Autoimmune Disease N Anemia N Celiac Disease N Arthritis/Gout N Anal/Rectal Trauma/Injury N Diabetes N Cataracts N Bleeding Disorder N Seizures/Epilepsy N Diverticulitis N Asthma N Reflux/GERD Y Ulcerative Colitis N Sleep Apnea N Aneurysm N Heart Disease N Pulmonary Embolism N Hypertension N Colon/Rectal Polyps N Gynecological History Statement/Question Response Number of Pregnancies? 3 Tear or Laceration During Delivery? Y Date of Last Mammogram 07/10/2017 Could You Be or Are You Currently Pregna nt? N Number of C-Sections? 0 Number of Vaginal Deliveries? 3 Accidental Bowel Leakage Post Delivery? Episiotomy During Delivery? Y Date of Last Pap Smear Obstetrics History GPAL:G 0 P 0 0 0 0 Past Encounters Encounter ID Performer Location Encounter Start Date Encounter Closed Date Diagnosis/Indication Diagnosis SNOMED-CT Code Diagnosis ICD10 Code Diagnosis IMO Codes Diagnosis Note [id number] Grazyna Batista MD Main Office [address] [facility] [address] [place] [address] 08/07/2018 14:36:08 08/07/2018 16:09:57 External hemorrhoids 87754719 K64.4 I discussed hemorrhoid s in general with her as well as the treatment options. I explained that any non-surgic al treatment (infrared coagulatio n or banding) would be done on her internal hemorrhoid s and her internals are not enlarged. The only way to get rid of the external hemorrhoid s/skin tags would be with an excision. I am referring her to Belinda Villanueva MD (colon and rectal surgeon with [facility]) for an evaluation and to discuss excision. She understand s this can be very painful, can cause complicati ons, will require time off work, may not look how she wants it to and her tags/exter nals can return even after excision. I encouraged her to at least get Dr. Villanueva's opinion. I advised that she can use coconut oil on the external skin if she feels it is too dry. Pile easily reducible 27 8070571 K64.1 See above. Chronic id iopathic constipation 82204564 K59.04 She absolutely needs to get this under control. She of course needs to be eating a high fiber diet and drinking plenty of water. I advised that she start BOTH Bene Fiber and Miralax at very low dose (1/4 tsp of each) and slowly increase to try to maintain soft daily BM's. Once she figures out what dose works best for her she should take it daily and forever. Cyclical v omiting syndrome 15267940 G43.A0 This is well controlled with her medication s and she does follow up with her GI doctor (Rhett Gamboa MD with [facility] ). Health Concerns Section Related Observation LastModified by Organization Detai ls LastModified Time None Recorded Concern Status LastModified by Organization Details LastModified Time None Recorded Advance Directives Directive None Recorded Payers Insurance Date Sequence Insurance Name Policy Number Policy [place] Covered Member ID [place] Member ID Guarantor Name 08/07/2018 1 [employer] [id number] Theodore L Kee [id number] Theodore L Kee 09/24/2018 PAYMENT PLAN Theodore L Kee 08/07/2018 1 [place] JENNIFER GARIBAY [id number] Theodore Kee [id number] Theodore L Kee Notes Date Note Type Note Provider Name and Address Organization Details Recorded Time 08/07/2018 text/html ROS as noted in the HPI This is a very pleasant 42 year old woman who has had symptoms from her hemorrhoids on and off for the last 9 years following the of her son. Initially her symptoms were intermittent and not terribly bothersome. They have worsened and become more persistent. She presents today for an evaluation and to discuss her treatment options. Bleeding: She occasionally sees a scant amount of bright red blood on the wipe with BM's. She has never had heavy bleeding and she has no leakage of blood in between BM's. Pain: Not really Itching: She can have a lot of external itching and irritation. She states this drives me absolutely crazy. She has used prescription hydrocortisone cream and suppositories. These did not help her itching so she has stopped using them. She does feel her skin gets too dry because she is always wiping a lot. Discharge: It is always hard to get clean after BM's because of swelling and irritation. She does use moist wipes when she is at home but does not carry them with her. She does occasionally have some difficulty staying clean - she has to re-wipe shortly after a BM. She has never had drainage heavy enough that she has to wear a pad but states she has had occasional staining in her underwear. Prolapse: Not that she feels External swelling: She always has external swelling and tags. She hates these. Discomfort: She has the external irritation/discomfor t. She occasionally has some internal pressure but this is not bad or persistent. She does not have a sense of being blocked when trying to have a BM or a sense of incomplete emptying after BM's. Previous Hemorrhoid Treatment: She has had the prescription creams/suppositories as above. She has tried multiple OTC medications but they are not helpful. Previous Lower GI Endoscopy: She has had multiple colonoscopies due to stomach issues. She was eventually diagnosed with cyclic vomiting syndrome and is being treated with gabapentin and topiramate for this (she is also on nortriptyline). These medicines have helped. All of her colonoscopies were evidently normal. Bowel Habits: She has had long standing 1 - 2 times weekly BM's and they are firm. She has taken full dose Miralax in the past but this made her BM's very loose and she feels this made her hemorrhoid symptoms worse. She is not currently taking any products to help her BM's. She tries to consistently eat a high fiber diet and drink plenty of water. Grazyna Batista MD [address] [facility],[address], [place], [address], [facility] 08/07/2018 19:15:33 OBGyn Episode No OBEpisode recorded.
[2025-05-09 11:58] LABS: Hematocrit 46.0 % (35.0-49.0); Hemoglobin 15.0 g/dL (12.0-15.0); Mean Corpuscular HGB Conc 32.6 g/dL (32-36); Mean Corpuscular Hemoglobin 28.6 pg (27.0-31.0); Mean Corpuscular Volume 87.6 fL (78.0-102.0); Platelet Count Result 350 K/mm3 (150-420); Red Blood Count 5.25 M/mm3 (4.20-5.40); White Blood Count 8.6 K/mm3 (4.8-10.8)
[2025-05-09 12:07] LABS: Add Urine Microscopic? NO; Appearance Urine Clear (Clear); Glucose Urine UA Negative (Negative); Leukocyte Esterase Ur Negative (Negative); Nitrate Urine Negative (Negative); Specific Grav Ur <= 1.005 (1.010-1.020)
[2025-05-09 12:27] LABS: Alanine Aminotransferase 25 U/L (6-35); Albumin Level 4.9 g/dL (3.5-5.1); Alkaline Phosphatase 49 U/L (38-126); Anion Gap 14 mmol/L (4-12); Aspartate Amino Transferase 30 U/L (14-36); Bilirubin,Total 0.8 mg/dL (0.2-1.3); Blood Urea Nitrogen 10 mg/dL (7-17); CRP 0.5 mg/dL (<1.0); Calcium 9.5 mg/dL (8.4-10.2); Carbon Dioxide 18 mmol/L (22-30); Chloride 108 mmol/L (98-107); Cholesterol 225 mg/dL (0-200); Estimated Glomerular Filt Rate > 60; Glucose 93 mg/dL (65-110); HDL Direct 53 mg/dL; Magnesium 2.0 mg/dL (1.6-2.3); Osmolality Calculated 289 mOsm/kg (285-295); Potassium 4.5 mmol/L (3.4-5.0); Sodium 140 mmol/L (137-145); Total Protein 7.6 g/dL (6.3-8.2); Triglycerides 274 mg/dL (<150)
[2025-05-09 12:33] LABS: NT Pro B Type Natriuretic Pept 32 pg/mL (19.9-100)
[2025-05-09 12:55] LABS: Thyroid Stimulating Hormone 2.360 uIU/mL (0.465-4.680)
== END 2025-05-09 11:29 | disposition home or self-care (01) ==
LOC: CHSLAB 11:29
PROVIDERS: PCP Internal Medicine; Visit Provider Internal Medicine
DX: Z00.00 Encounter for general adult medical examination without abnormal findings (principal); R06.00 Dyspnea, unspecified
CPT/HCPCS: 36415; 80053; 80061; 81003; 83735; 83880; 84443; 85027; 86140